=== PATIENT | female | born 1985 | race Caucasian/White ===

== ENCOUNTER 2019-04-28 12:13 | Emergency (ER) | payer SELFPAY ==
[~2019-04-28] VITALS: Ht 162.6 cm; Wt 72.7 kg
[2019-04-28 13:33] LABS: BASOPHILS % (AUTO) 0.2 % (0.0-2.0); EOSINOPHILS % (AUTO) 0.1 % (1.0-6.0); HEMATOCRIT 38.3 % (36-46); HEMOGLOBIN 12.5 g/dL (12.0-16.0); LYMPHOCYTES % (AUTO) 10.3 % (22.0-44.0); MEAN CORPUSCULAR HEMOGLOBIN 27.2 pg (26.0-34.0); MEAN CORPUSCULAR HGB CONC 32.5 G/dL (31.0-37.0); MEAN CORPUSCULAR VOLUME 84 fL (80-100); MONOCYTES # (AUTO) 0.6 K/uL (0.1-1.0); MONOCYTES % (AUTO) 6.7 % (2.0-9.0); NEUTROPHILS % (AUTO) 82.7 % (40.0-70.0); PLATELET COUNT (AUTO) 343 K/uL (150-450); RED BLOOD CELL COUNT(AUTO) 4.58 MIL/uL (4.00-5.20); RED CELL DISTRIBUTION WIDTH 14.9 % (11.5-14.5)
[2019-04-28 13:46] LABS: ANION GAP 9 mmol/L (8-16); CALCIUM, TOTAL 9.3 mg/dL (8.8-10.5); CARBON DIOXIDE 28 mmol/L (22-29); CHLORIDE 105 mmol/L (98-107); GLOMERULAR FILTR. RATE CALC > 60 mL/min (>60); GLUCOSE,RANDOM 89 mg/dL (70-110); POTASSIUM 3.5 mmol/L (3.5-5.1); SODIUM SERUM 142 mmol/L (136-145); UREA NITROGEN, BLOOD 15 mg/dL (7-18)
[2019-04-28 13:50] LABS: ALANINE AMINOTRANSFERASE 43 U/L (12-78); ALKALINE PHOSPHATASE 79 U/L (46-116); ASPARTATE AMINOTRANSFERASE 26 U/L (15-37); BILIRUBIN,TOTAL 0.4 mg/dL (0.1-1.0); TOTAL PROTEIN, SERUM 7.8 g/dL (6.4-8.2)
[2019-04-28 15:37] LABS: AMPHET/METH SCREEN,URINE POSITIVE (NEGATIVE); BARBITURATE SCREEN, URINE NEGATIVE (NEGATIVE); BENZODIAZEPINES SCREEN,URINE NEGATIVE (NEGATIVE); CANNABINOID SCREEN,URINE NEGATIVE (NEGATIVE); COCAINE SCREEN,URINE NEGATIVE (NEGATIVE); METHADONE SCREEN, URINE NEGATIVE (NEGATIVE); OPIATE SCREEN,URINE NEGATIVE (NEGATIVE); PHENCYCLIDINE SCREEN,URINE NEGATIVE (NEGATIVE)
[2019-04-28] MEDS ORDERED: LORazepam 1 MG TABLET PO ONE (15:45)
[2019-04-28 16:37] VITALS: BP 111/81
== END 2019-04-28 16:42 | disposition home or self-care (01) ==
LOC: EMS 12:17
DX: R45.851 Suicidal ideations (principal); F22 Delusional disorders; F20.9 Schizophrenia, unspecified; F15.10 Other stimulant abuse, uncomplicated; F17.210 Nicotine dependence, cigarettes, uncomplicated
CPT/HCPCS: 36415; 80053; 80307; 85025; 99285; 99406; G0480

== ENCOUNTER 2019-10-07 14:03 | Inpatient (IN) | payer MEDICAID ==
[~2019-10-07] VITALS: Ht 167.6 cm; Wt 62.8 kg
[2019-10-07 15:43] LABS: BASOPHILS % (AUTO) 0.6 % (0.0-2.0); EOSINOPHILS % (AUTO) 0.1 % (1.0-6.0); HEMATOCRIT 33.8 % (36-46); HEMOGLOBIN 11.7 g/dL (12.0-16.0); LYMPHOCYTES # (AUTO) 1.8 K/uL (1.0-4.8); LYMPHOCYTES % (AUTO) 15.4 % (22.0-44.0); MEAN CORPUSCULAR HEMOGLOBIN 29.6 pg (26.0-34.0); MEAN CORPUSCULAR HGB CONC 34.7 G/dL (31.0-37.0); MEAN CORPUSCULAR VOLUME 85 fL (80-100); MONOCYTES # (AUTO) 1.1 K/uL (0.1-1.0); MONOCYTES % (AUTO) 9.6 % (2.0-9.0); NEUTROPHILS # (AUTO) 8.7 K/uL (1.8-7.7); NEUTROPHILS % (AUTO) 74.3 % (40.0-70.0); PLATELET COUNT (AUTO) 377 K/uL (150-450); RED BLOOD CELL COUNT(AUTO) 3.96 MIL/uL (4.00-5.20); RED CELL DISTRIBUTION WIDTH 14.9 % (11.5-14.5)
[2019-10-07 15:51] LABS: ANION GAP 14 mmol/L (8-16); CARBON DIOXIDE 22 mmol/L (22-29); CHLORIDE 103 mmol/L (98-107); CREATININE 1.07 mg/dL (0.60-1.30); GLOMERULAR FILTR. RATE CALC 59 mL/min (>60); GLUCOSE,RANDOM 105 mg/dL (70-110); POTASSIUM 3.4 mmol/L (3.5-5.1); SODIUM SERUM 139 mmol/L (136-145); UREA NITROGEN, BLOOD 30 mg/dL (7-18)
[2019-10-07 16:03] LABS: ALANINE AMINOTRANSFERASE 114 U/L (12-78); ALBUMIN 4.8 g/dL (3.4-5.0); ALKALINE PHOSPHATASE 111 U/L (46-116); ASPARTATE AMINOTRANSFERASE 176 U/L (15-37); BILIRUBIN,TOTAL 1.3 mg/dL (0.1-1.0); HCG,QUANTITATIVE < 1 mIU/mL (0-6); TOTAL PROTEIN, SERUM 9.1 g/dL (6.4-8.2)
[2019-10-07] MEDS ORDERED: HALOPERIDOL 5 MG TABLET PO PRN (18:30)
[2019-10-07] MEDS ORDERED: ZOLPIDEM TARTRATE 10 MG TABLET PO PRN (18:30)
[2019-10-07] MEDS: LORazepam 2 MG TABLET PO PRN (19:45)
[2019-10-07 20:02] LABS: AMPHET/METH SCREEN,URINE POSITIVE (NEGATIVE); BARBITURATE SCREEN, URINE NEGATIVE (NEGATIVE); BENZODIAZEPINES SCREEN,URINE NEGATIVE (NEGATIVE); CANNABINOID SCREEN,URINE NEGATIVE (NEGATIVE); COCAINE SCREEN,URINE NEGATIVE (NEGATIVE); METHADONE SCREEN, URINE NEGATIVE (NEGATIVE); OPIATE SCREEN,URINE NEGATIVE (NEGATIVE)
[2019-10-07 20:03] LABS: PHENCYCLIDINE SCREEN,URINE NEGATIVE (NEGATIVE)
[2019-10-08 08:46] LABS: CHOL/HDL RATIO 2.6 (3.9-5.7); FREE T4 (FREE THYROXINE) 1.57 ng/dL (0.76-1.46); THYROID STIMULATING HORMONE 0.68 uIU/mL (0.36-3.74)
[2019-10-08 18:50] VITALS: BP 146/86
[2019-10-09 03:53] VITALS: BP 132/84
[2019-10-09] MEDS ORDERED: LOPERAMIDE HCL 2 MG CAPSULE PO PRN (07:15)
[2019-10-09] MEDS ORDERED: ONDANSETRON HCL 4 MG TABLET PO PRN (07:15)
[2019-10-09] MEDS ORDERED: MAG HYDROX/AL HYDROX/SIMETH ES 30 ML SUSPENSION UDCUP PO PRN (07:15)
[2019-10-09] MEDS ORDERED: IBUPROFEN 600 MG TABLET PO PRN (07:15)
[2019-10-09] MEDS ORDERED: DOCUSATE SODIUM 100 MG CAPSULE PO PRN (07:15)
[2019-10-09] MEDS ORDERED: PETROLATUM,WHITE 28 GM JELLY TP PRN (07:15)
[2019-10-09] MEDS ORDERED: CloNIDine HCL 0.1 MG TABLET PO PRN (07:15)
[2019-10-09] MEDS ORDERED: BACITRACIN 28 GM OINTMENT TP PRN (07:15)
[2019-10-09] MEDS ORDERED: BENZOCAINE/MENTHOL LOZENGE PO PRN (07:15)
[2019-10-09] MEDS ORDERED: ALBUTEROL SULFATE HFA 90 MCG/PUFF 8 GM INHALER IH PRN (07:15)
[2019-10-09] MEDS ORDERED: ACETAMINOPHEN 325 MG TABLET PO PRN (07:15)
[2019-10-09] MEDS ORDERED: MAGNESIUM HYDROXIDE SUSPENSION 30 ML UDCUP PO PRN (07:15)
[2019-10-09] MEDS ORDERED: OMEPRAZOLE 20 MG CAPSULE PO PRN (07:15)
[2019-10-09 08:10] VITALS: BP 137/85
[2019-10-09 16:11] VITALS: BP 124/75
[2019-10-09] MEDS: LORazepam 2 MG TABLET PO PRN (16:31)
[2019-10-09] MEDS: OLANZapine 7.5 MG TABLET PO SCH (20:42)
[2019-10-10 04:38] VITALS: BP 124/92
[2019-10-10 07:47] LABS: BASOPHILS % (AUTO) 0.5 % (0.0-2.0); EOSINOPHILS % (AUTO) 4.3 % (1.0-6.0); HEMATOCRIT 33.6 % (36-46); HEMOGLOBIN 10.9 g/dL (12.0-16.0); LYMPHOCYTES # (AUTO) 2.3 K/uL (1.0-4.8); LYMPHOCYTES % (AUTO) 36.2 % (22.0-44.0); MEAN CORPUSCULAR HEMOGLOBIN 28.3 pg (26.0-34.0); MEAN CORPUSCULAR HGB CONC 32.5 G/dL (31.0-37.0); MEAN CORPUSCULAR VOLUME 87 fL (80-100); MONOCYTES # (AUTO) 0.6 K/uL (0.1-1.0); MONOCYTES % (AUTO) 9.7 % (2.0-9.0); NEUTROPHILS # (AUTO) 3.2 K/uL (1.8-7.7); NEUTROPHILS % (AUTO) 49.3 % (40.0-70.0); PLATELET COUNT (AUTO) 313 K/uL (150-450); RED BLOOD CELL COUNT(AUTO) 3.86 MIL/uL (4.00-5.20)
[2019-10-10 08:03] LABS: ALANINE AMINOTRANSFERASE 47 U/L (12-78); ALKALINE PHOSPHATASE 76 U/L (46-116); ANION GAP 6 mmol/L (8-16); ASPARTATE AMINOTRANSFERASE 24 U/L (15-37); BILIRUBIN,TOTAL 0.2 mg/dL (0.1-1.0); CALCIUM, TOTAL 8.2 mg/dL (8.8-10.5); CARBON DIOXIDE 29 mmol/L (22-29); CHLORIDE 104 mmol/L (98-107); CREATININE 0.74 mg/dL (0.60-1.30); GLOMERULAR FILTR. RATE CALC > 60 mL/min (>60); GLUCOSE,RANDOM 105 mg/dL (70-110); POTASSIUM 3.4 mmol/L (3.5-5.1); SODIUM SERUM 139 mmol/L (136-145); TOTAL PROTEIN, SERUM 6.4 g/dL (6.4-8.2); UREA NITROGEN, BLOOD 15 mg/dL (7-18)
[2019-10-10 08:26] VITALS: BP 119/72
[2019-10-10] MEDS: LORazepam 2 MG TABLET PO PRN (10:41)
[2019-10-10 16:07] VITALS: BP 116/79
[2019-10-10] MEDS ORDERED: POTASSIUM CHLORIDE 20 MEQ ER TABLET PO ONE (18:45)
[2019-10-10] MEDS: OLANZapine 7.5 MG TABLET PO SCH (20:12)
[2019-10-11 03:41] VITALS: BP 115/65
[2019-10-11 08:17] VITALS: BP 110/69
[2019-10-11 16:33] VITALS: BP 105/67
[2019-10-11] MEDS: OLANZapine 7.5 MG TABLET PO SCH (20:36)
[2019-10-12 06:22] VITALS: BP 112/66
[2019-10-12 08:17] VITALS: BP 100/60
[2019-10-12 16:09] VITALS: BP 100/62
[2019-10-12] MEDS: OLANZapine 7.5 MG TABLET PO SCH (20:39)
[2019-10-13 00:27] VITALS: BP 101/74
[2019-10-13 09:52] VITALS: BP 116/64
[2019-10-13 16:00] VITALS: BP 122/77
[2019-10-13] MEDS: OLANZapine 7.5 MG TABLET PO SCH (20:26)
[2019-10-14 04:00] VITALS: BP 103/62
[2019-10-14 08:17] VITALS: BP 112/68
[2019-10-14 16:07] VITALS: BP 119/67
[2019-10-14] MEDS: OLANZapine 7.5 MG TABLET PO SCH (20:07)
[2019-10-15 06:24] VITALS: BP 113/72
[2019-10-15 08:26] VITALS: BP 116/74
[2019-10-15] MEDS: LORazepam 2 MG TABLET PO PRN (13:32)
[2019-10-15 16:09] VITALS: BP 104/61
[2019-10-15] MEDS: OLANZapine 7.5 MG TABLET PO SCH (20:23)
[2019-10-16 01:08] VITALS: BP 101/66
[2019-10-16 08:14] VITALS: BP 128/66
[2019-10-16] MEDS: LORazepam 2 MG TABLET PO PRN ×2 (14:25→18:38)
[2019-10-16 16:18] VITALS: BP 100/67
[2019-10-16] MEDS: OLANZapine 7.5 MG TABLET PO SCH (20:35)
[2019-10-17 04:37] VITALS: BP 101/69
[2019-10-17 08:20] VITALS: BP 110/66
[2019-10-17] MEDS ORDERED: OLAN7.5T2 PO (11:04)
[2019-10-18] MEDS ORDERED: MULTIVITAMINS WITH IRON TABLET PO SCH (07:30)
== END 2019-10-17 13:10 | disposition home or self-care (01) | DRG 750 ==
LOC: EMS 14:06 → B3A 10-08 16:56
PROVIDERS: ADMIT Psychiatry & Neurology Psychiatry; ATTEND Psychiatry & Neurology Psychiatry
DX: F20.0 Paranoid schizophrenia (principal); F41.9 Anxiety disorder, unspecified; G47.00 Insomnia, unspecified; E87.6 Hypokalemia; F15.10 Other stimulant abuse, uncomplicated; E44.1 Mild protein-calorie malnutrition; F17.210 Nicotine dependence, cigarettes, uncomplicated; K59.00 Constipation, unspecified; Z56.0 Unemployment, unspecified; Z59.0 Homelessness; Z68.22 Body mass index [BMI] 22.0-22.9, adult; Z03.818 Encounter for observation for suspected exposure to other biological agents ruled out
CPT/HCPCS: 80074; 84132; 84439; 84443; G0480

== ENCOUNTER 2019-11-09 22:27 | Inpatient (IN) | payer MEDICAID ==
[~2019-11-09] VITALS: Ht 167.6 cm; Wt 63.7 kg
[~2019-11-09 22:27] MED LIST: OLAN7.5T2 PO
[2019-11-09 23:45] LABS: BASOPHILS % (AUTO) 0.4 % (0.0-2.0); EOSINOPHILS % (AUTO) 0.9 % (1.0-6.0); HEMATOCRIT 38.5 % (36-46); HEMOGLOBIN 12.5 g/dL (12.0-16.0); LYMPHOCYTES % (AUTO) 17.9 % (22.0-44.0); MEAN CORPUSCULAR HEMOGLOBIN 28.1 pg (26.0-34.0); MEAN CORPUSCULAR HGB CONC 32.5 G/dL (31.0-37.0); MEAN CORPUSCULAR VOLUME 86 fL (80-100); MONOCYTES % (AUTO) 9.5 % (2.0-9.0); NEUTROPHILS # (AUTO) 7.8 K/uL (1.8-7.7); NEUTROPHILS % (AUTO) 71.3 % (40.0-70.0); PLATELET COUNT (AUTO) 379 K/uL (150-450); RED BLOOD CELL COUNT(AUTO) 4.46 MIL/uL (4.00-5.20); RED CELL DISTRIBUTION WIDTH 14.2 % (11.5-14.5)
[2019-11-10] LABS: ANION GAP 12 mmol/L (8-16); CALCIUM, TOTAL 8.7 mg/dL (8.8-10.5); CARBON DIOXIDE 27 mmol/L (22-29); CHLORIDE 102 mmol/L (98-107); CREATININE 0.88 mg/dL (0.60-1.30); GLOMERULAR FILTR. RATE CALC > 60 mL/min (>60); GLUCOSE,RANDOM 112 mg/dL (70-110); POTASSIUM 3.3 mmol/L (3.5-5.1); SODIUM SERUM 141 mmol/L (136-145); UREA NITROGEN, BLOOD 16 mg/dL (7-18)
[2019-11-10 00:11] LABS: ALANINE AMINOTRANSFERASE 29 U/L (12-78); ALBUMIN 3.9 g/dL (3.4-5.0); ALKALINE PHOSPHATASE 102 U/L (46-116); ASPARTATE AMINOTRANSFERASE 29 U/L (15-37); BILIRUBIN,TOTAL 0.4 mg/dL (0.1-1.0); HCG,QUANTITATIVE 1 mIU/mL (0-6); TOTAL PROTEIN, SERUM 7.9 g/dL (6.4-8.2)
[2019-11-10 01:20] LABS: COVID AG,FIA SOURCE NASOPHARYNGEAL
[2019-11-10] MEDS ORDERED: PERTUSS(ACELL),DIPH,TET VAC/PF 0.5 ML VIAL IM ONE (01:30)
[2019-11-10] MEDS ORDERED: LORazepam 2 MG TABLET PO PRN (01:45)
[2019-11-10] MEDS ORDERED: ZOLPIDEM TARTRATE 10 MG TABLET PO PRN (01:45)
[2019-11-10] MEDS ORDERED: HALOPERIDOL 5 MG TABLET PO PRN (01:45)
[2019-11-10] MEDS ORDERED: HALOPERIDOL LACTATE 5 MG/ML VIAL IM ONE (05:45)
[2019-11-10] MEDS ORDERED: LORazepam 2 MG/ML VIAL IM ONE (05:45)
[2019-11-10] MEDS ORDERED: DiphenhydrAMINE HCL 50 MG/ML VIAL IM ONE (05:45)
[2019-11-10] MEDS ORDERED: POTASSIUM CHLORIDE 20 MEQ ER TABLET PO ONE (08:30)
[2019-11-10 14:47] VITALS: BP 118/64
[2019-11-10 16:07] VITALS: BP 106/64
[2019-11-10] MEDS: OLANZapine 7.5 MG TABLET PO SCH (20:40)
[2019-11-11] MEDS ORDERED: CloNIDine HCL 0.1 MG TABLET PO PRN (08:15)
[2019-11-11] MEDS ORDERED: MAG HYDROX/AL HYDROX/SIMETH ES 30 ML SUSPENSION UDCUP PO PRN (08:15)
[2019-11-11] MEDS ORDERED: BENZOCAINE/MENTHOL LOZENGE PO PRN (08:15)
[2019-11-11] MEDS ORDERED: MAGNESIUM HYDROXIDE SUSPENSION 30 ML UDCUP PO PRN (08:15)
[2019-11-11] MEDS ORDERED: ALBUTEROL SULFATE HFA 90 MCG/PUFF 8 GM INHALER IH PRN (08:15)
[2019-11-11] MEDS ORDERED: DOCUSATE SODIUM 100 MG CAPSULE PO PRN (08:15)
[2019-11-11] MEDS ORDERED: PETROLATUM,WHITE 28 GM JELLY TP PRN (08:15)
[2019-11-11] MEDS ORDERED: ACETAMINOPHEN 325 MG TABLET PO PRN (08:15)
[2019-11-11] MEDS ORDERED: BACITRACIN 28 GM OINTMENT TP PRN (08:15)
[2019-11-11] MEDS ORDERED: LOPERAMIDE HCL 2 MG CAPSULE PO PRN (08:15)
[2019-11-11] MEDS ORDERED: ONDANSETRON HCL 4 MG TABLET PO PRN (08:15)
[2019-11-11] MEDS ORDERED: IBUPROFEN 600 MG TABLET PO PRN (08:15)
[2019-11-11] MEDS ORDERED: OMEPRAZOLE 20 MG CAPSULE PO PRN (08:15)
[2019-11-11 17:27] VITALS: BP 122/71
[2019-11-11] MEDS: OLANZapine 7.5 MG TABLET PO SCH (20:17)
[2019-11-12 01:49] VITALS: BP 125/68
[2019-11-12 08:03] VITALS: BP 156/96
[2019-11-12] MEDS: OLANZapine 7.5 MG TABLET PO SCH (20:06)
[2019-11-13 06:15] VITALS: BP 140/98
[2019-11-13 13:25] VITALS: BP 124/84
[2019-11-13 16:15] VITALS: BP 131/78
[2019-11-13] MEDS: OLANZapine 7.5 MG TABLET PO SCH (20:15)
[2019-11-14 03:49] VITALS: BP 126/75
[2019-11-14 16:17] VITALS: BP 115/72
[2019-11-14] MEDS: OLANZapine 7.5 MG TABLET PO SCH (19:50)
[2019-11-15 02:42] VITALS: BP 111/68
[2019-11-15 08:03] VITALS: BP 115/68
[2019-11-15 16:02] VITALS: BP 131/81
[2019-11-15] MEDS: OLANZapine 7.5 MG TABLET PO SCH (20:46)
[2019-11-16 18:00] VITALS: BP 134/98
[2019-11-16] MEDS: OLANZapine 7.5 MG TABLET PO SCH (20:33)
[2019-11-17 02:20] VITALS: BP 128/86
[2019-11-17 08:13] VITALS: BP 126/74
[2019-11-17] MEDS ORDERED: MULTIVITAMINS WITH MINERALS, THERAPEUTIC TABLET PO SCH (09:00)
== END 2019-11-17 14:30 | disposition home or self-care (01) | DRG 750 ==
LOC: EMS 22:27 → B2S 11-10 01:42 → B3A 11-10 05:52
PROVIDERS: ADMIT Psychiatry & Neurology Psychiatry; ATTEND Psychiatry & Neurology Psychiatry
DX: F20.0 Paranoid schizophrenia (principal); Z20.828 Contact with and (suspected) exposure to other viral communicable diseases; E87.6 Hypokalemia; F41.9 Anxiety disorder, unspecified; F19.10 Other psychoactive substance abuse, uncomplicated; K59.00 Constipation, unspecified; G47.00 Insomnia, unspecified; E44.1 Mild protein-calorie malnutrition; F17.200 Nicotine dependence, unspecified, uncomplicated; Z71.6 Tobacco abuse counseling; Z59.0 Homelessness; Z68.22 Body mass index [BMI] 22.0-22.9, adult; Z03.818 Encounter for observation for suspected exposure to other biological agents ruled out
CPT/HCPCS: 87081; 87426; G0480; J1200; J1630; J2060

== ENCOUNTER 2019-11-19 16:51 | Inpatient (IN) | payer MEDICAID ==
[~2019-11-19] VITALS: Ht 170.2 cm; Wt 62.9 kg
[2019-11-19] MEDS ORDERED: DiphenhydrAMINE HCL 50 MG/ML VIAL ONE (17:34)
[2019-11-19] MEDS ORDERED: LORazepam 2 MG/ML VIAL ONE (17:34)
[2019-11-19] MEDS ORDERED: HALOPERIDOL LACTATE 5 MG/ML VIAL ONE (17:34)
[2019-11-19] MEDS ORDERED: HALOPERIDOL LACTATE 5 MG/ML VIAL IM ONE (17:45)
[2019-11-19] MEDS ORDERED: DiphenhydrAMINE HCL 50 MG/ML VIAL IM ONE (17:45)
[2019-11-19] MEDS ORDERED: LORazepam 2 MG/ML VIAL IM ONE (17:45)
[2019-11-19] MEDS ORDERED: ZOLPIDEM TARTRATE 10 MG TABLET PO PRN (18:15)
[2019-11-19] MEDS ORDERED: HALOPERIDOL 5 MG TABLET PO PRN (18:15)
[2019-11-19] MEDS ORDERED: LORazepam 2 MG TABLET PO PRN (18:15)
[2019-11-19 18:50] LABS: BASOPHILS % (AUTO) 0.9 % (0.0-2.0); EOSINOPHILS % (AUTO) 0.7 % (1.0-6.0); HEMATOCRIT 38.2 % (36-46); HEMOGLOBIN 12.7 g/dL (12.0-16.0); LYMPHOCYTES # (AUTO) 1.6 K/uL (1.0-4.8); MEAN CORPUSCULAR HEMOGLOBIN 28.7 pg (26.0-34.0); MEAN CORPUSCULAR HGB CONC 33.2 G/dL (31.0-37.0); MEAN CORPUSCULAR VOLUME 87 fL (80-100); MONOCYTES # (AUTO) 0.8 K/uL (0.1-1.0); MONOCYTES % (AUTO) 7.4 % (2.0-9.0); NEUTROPHILS # (AUTO) 7.6 K/uL (1.8-7.7); PLATELET COUNT (AUTO) 447 K/uL (150-450); RED BLOOD CELL COUNT(AUTO) 4.42 MIL/uL (4.00-5.20); RED CELL DISTRIBUTION WIDTH 14.1 % (11.5-14.5)
[2019-11-19 19:01] LABS: ANION GAP 8 mmol/L (8-16); CALCIUM, TOTAL 8.8 mg/dL (8.8-10.5); CARBON DIOXIDE 29 mmol/L (22-29); CHLORIDE 103 mmol/L (98-107); CREATININE 0.85 mg/dL (0.60-1.30); GLOMERULAR FILTR. RATE CALC > 60 mL/min (>60); GLUCOSE,RANDOM 83 mg/dL (70-110); POTASSIUM 3.1 mmol/L (3.5-5.1); SODIUM SERUM 140 mmol/L (136-145); UREA NITROGEN, BLOOD 20 mg/dL (7-18)
[2019-11-19 19:16] LABS: ALANINE AMINOTRANSFERASE 42 U/L (12-78); ALBUMIN 3.9 g/dL (3.4-5.0); ALKALINE PHOSPHATASE 87 U/L (46-116); ASPARTATE AMINOTRANSFERASE 30 U/L (15-37); BILIRUBIN,TOTAL 0.5 mg/dL (0.1-1.0); HCG,QUANTITATIVE 1 mIU/mL (0-6); TOTAL PROTEIN, SERUM 7.6 g/dL (6.4-8.2)
[2019-11-19 20:34] LABS: COVID AG,FIA SOURCE NASOPHARYNGEAL
[2019-11-19] MEDS ORDERED: POTASSIUM CHLORIDE 10% 40 MEQ/30 ML LIQUID UDCUP PO ONE (21:30)
[2019-11-20 01:14] VITALS: BP 131/86
[2019-11-20] MEDS ORDERED: INFLUENZA VIRUS VACCINE QVS 2020-21 (6MO+)/PF 60 MCG/0.5 ML SYRINGE IM ONE (01:30)
[2019-11-20] MEDS ORDERED: ALBUTEROL SULFATE HFA 90 MCG/PUFF 8 GM INHALER IH PRN (07:45)
[2019-11-20] MEDS ORDERED: LOPERAMIDE HCL 2 MG CAPSULE PO PRN (07:45)
[2019-11-20] MEDS ORDERED: MAGNESIUM HYDROXIDE SUSPENSION 30 ML UDCUP PO PRN (07:45)
[2019-11-20] MEDS ORDERED: CloNIDine HCL 0.1 MG TABLET PO PRN (07:45)
[2019-11-20] MEDS ORDERED: IBUPROFEN 600 MG TABLET PO PRN (07:45)
[2019-11-20] MEDS ORDERED: DOCUSATE SODIUM 100 MG CAPSULE PO PRN (07:45)
[2019-11-20] MEDS ORDERED: MAG HYDROX/AL HYDROX/SIMETH ES 30 ML SUSPENSION UDCUP PO PRN (07:45)
[2019-11-20] MEDS ORDERED: OMEPRAZOLE 20 MG CAPSULE PO PRN (07:45)
[2019-11-20] MEDS ORDERED: PETROLATUM,WHITE 28 GM JELLY TP PRN (07:45)
[2019-11-20] MEDS ORDERED: BACITRACIN 28 GM OINTMENT TP PRN (07:45)
[2019-11-20] MEDS ORDERED: BENZOCAINE/MENTHOL LOZENGE PO PRN (07:45)
[2019-11-20] MEDS ORDERED: ACETAMINOPHEN 325 MG TABLET PO PRN (07:45)
[2019-11-20] MEDS ORDERED: ONDANSETRON HCL 4 MG TABLET PO PRN (07:45)
[2019-11-20 08:35] LABS: AMPHET/METH SCREEN,URINE POSITIVE (NEGATIVE); BARBITURATE SCREEN, URINE NEGATIVE (NEGATIVE); BENZODIAZEPINES SCREEN,URINE NEGATIVE (NEGATIVE); CANNABINOID SCREEN,URINE NEGATIVE (NEGATIVE); COCAINE SCREEN,URINE NEGATIVE (NEGATIVE); METHADONE SCREEN, URINE NEGATIVE (NEGATIVE); OPIATE SCREEN,URINE NEGATIVE (NEGATIVE)
[2019-11-20 08:40] LABS: PHENCYCLIDINE SCREEN,URINE NEGATIVE (NEGATIVE)
[2019-11-20 08:42] LABS: APPEARANCE,URINE CLOUDY (CLEAR); BILIRUBIN,URINE NEGATIVE (NEGATIVE); GLUCOSE, URINE (UA) NEGATIVE (NEGATIVE); KETONES,URINE NEGATIVE (NEGATIVE); LEUKOCYTE ESTERASE ,URINE NEGATIVE (NEGATIVE); NITRATE,URINE NEGATIVE (NEGATIVE); OCCULT BLOOD,URINE NEGATIVE (NEGATIVE); PROTEIN,URINE NEGATIVE (NEGATIVE); UROBILINOGEN,URINE 0.2 mg/dL (<=1.0)
[2019-11-20 08:58] VITALS: BP 120/71
[2019-11-20 16:21] VITALS: BP 111/68
[2019-11-20] MEDS: OLANZapine 7.5 MG TABLET PO SCH (20:13)
[2019-11-21 16:30] VITALS: BP 121/77
[2019-11-21] MEDS: OLANZapine 7.5 MG TABLET PO SCH (20:39)
[2019-11-22 06:49] LABS: POTASSIUM 4.1 mmol/L (3.5-5.1)
[2019-11-22 16:27] VITALS: BP 117/67
[2019-11-22] MEDS: OLANZapine 7.5 MG TABLET PO SCH (20:19)
[2019-11-23 09:09] VITALS: BP 122/75
[2019-11-23 16:39] VITALS: BP 125/62
[2019-11-23] MEDS ORDERED: OLAN7.5T2 PO ×4 (19:29→19:35)
== END 2019-11-23 20:00 | disposition home or self-care (01) | DRG 750 ==
LOC: EMS 16:52 → UNDOADMIN 18:09 → 3EI 18:09
PROVIDERS: ADMIT Psychiatry & Neurology Psychiatry; ATTEND Psychiatry & Neurology Psychiatry
DX: F20.0 Paranoid schizophrenia (principal); E87.6 Hypokalemia; F15.10 Other stimulant abuse, uncomplicated; F41.9 Anxiety disorder, unspecified; G47.00 Insomnia, unspecified; K59.00 Constipation, unspecified; R45.87 Impulsiveness; Z20.828 Contact with and (suspected) exposure to other viral communicable diseases; Z59.0 Homelessness; Z72.0 Tobacco use
CPT/HCPCS: 84132; 84295; 87081; 87426; 99291; G0480; J1200; J1630; J2060

== ENCOUNTER 2019-11-29 08:09 | Inpatient (IN) | payer MEDICAID ==
[~2019-11-29] VITALS: Ht 167.6 cm; Wt 68.5 kg
[2019-11-29 09:54] LABS: COVID AG,FIA SOURCE NASOPHARYNGEAL
[2019-11-29 10:40] LABS: BASOPHILS % (AUTO) 0.6 % (0.0-2.0); EOSINOPHILS % (AUTO) 1.8 % (1.0-6.0); HEMOGLOBIN 10.7 g/dL (12.0-16.0); LYMPHOCYTES # (AUTO) 1.4 K/uL (1.0-4.8); LYMPHOCYTES % (AUTO) 23.9 % (22.0-44.0); MEAN CORPUSCULAR HEMOGLOBIN 28.6 pg (26.0-34.0); MEAN CORPUSCULAR HGB CONC 33.3 G/dL (31.0-37.0); MEAN CORPUSCULAR VOLUME 86 fL (80-100); MONOCYTES # (AUTO) 0.6 K/uL (0.1-1.0); MONOCYTES % (AUTO) 9.6 % (2.0-9.0); NEUTROPHILS # (AUTO) 3.9 K/uL (1.8-7.7); NEUTROPHILS % (AUTO) 64.1 % (40.0-70.0); PLATELET COUNT (AUTO) 302 K/uL (150-450); RED BLOOD CELL COUNT(AUTO) 3.73 MIL/uL (4.00-5.20); RED CELL DISTRIBUTION WIDTH 13.8 % (11.5-14.5)
[2019-11-29 10:50] LABS: ANION GAP 10 mmol/L (8-16); CALCIUM, TOTAL 8.4 mg/dL (8.8-10.5); CARBON DIOXIDE 25 mmol/L (22-29); CHLORIDE 104 mmol/L (98-107); GLOMERULAR FILTR. RATE CALC > 60 mL/min (>60); GLUCOSE,RANDOM 76 mg/dL (70-110); POTASSIUM 3.2 mmol/L (3.5-5.1); SODIUM SERUM 139 mmol/L (136-145); UREA NITROGEN, BLOOD 10 mg/dL (7-18)
[2019-11-29 11:05] LABS: ALANINE AMINOTRANSFERASE 28 U/L (12-78); ALBUMIN 3.3 g/dL (3.4-5.0); ALKALINE PHOSPHATASE 67 U/L (46-116); ASPARTATE AMINOTRANSFERASE 24 U/L (15-37); BILIRUBIN,TOTAL 0.4 mg/dL (0.1-1.0); HCG,QUANTITATIVE 1 mIU/mL (0-6); TOTAL PROTEIN, SERUM 6.4 g/dL (6.4-8.2)
[2019-11-29] MEDS ORDERED: POTASSIUM CHLORIDE 20 MEQ ER TABLET PO ONE (11:15)
[2019-11-29] MEDS ORDERED: OLANZapine 5 MG TABLET PO ONE (11:30)
[2019-11-29] MEDS ORDERED: LORazepam 2 MG TABLET PO ONE (11:30)
[2019-11-29 11:55] LABS: AMPHET/METH SCREEN,URINE POSITIVE (NEGATIVE); BARBITURATE SCREEN, URINE NEGATIVE (NEGATIVE); BENZODIAZEPINES SCREEN,URINE NEGATIVE (NEGATIVE); CANNABINOID SCREEN,URINE NEGATIVE (NEGATIVE); COCAINE SCREEN,URINE NEGATIVE (NEGATIVE); METHADONE SCREEN, URINE NEGATIVE (NEGATIVE); OPIATE SCREEN,URINE NEGATIVE (NEGATIVE)
[2019-11-29 12:00] LABS: PHENCYCLIDINE SCREEN,URINE NEGATIVE (NEGATIVE)
[2019-11-29] MEDS ORDERED: ZOLPIDEM TARTRATE 10 MG TABLET PO PRN (12:00)
[2019-11-29] MEDS ORDERED: INFLUENZA VIRUS VACCINE QVS 2020-21 (6MO+)/PF 60 MCG/0.5 ML SYRINGE IM ONE (14:30)
[2019-11-29 18:51] VITALS: BP 138/81
[2019-11-29] MEDS: OLANZapine 7.5 MG TABLET PO SCH (20:26)
[2019-11-30] MEDS ORDERED: CloNIDine HCL 0.1 MG TABLET PO PRN
[2019-11-30] MEDS ORDERED: MAGNESIUM HYDROXIDE SUSPENSION 30 ML UDCUP PO PRN
[2019-11-30] MEDS ORDERED: BENZOCAINE/MENTHOL LOZENGE PO PRN
[2019-11-30] MEDS ORDERED: PETROLATUM,WHITE 28 GM JELLY TP PRN
[2019-11-30] MEDS ORDERED: ALBUTEROL SULFATE HFA 90 MCG/PUFF 8 GM INHALER IH PRN
[2019-11-30] MEDS ORDERED: LOPERAMIDE HCL 2 MG CAPSULE PO PRN
[2019-11-30] MEDS ORDERED: OMEPRAZOLE 20 MG CAPSULE PO PRN
[2019-11-30] MEDS ORDERED: ONDANSETRON HCL 4 MG TABLET PO PRN
[2019-11-30] MEDS ORDERED: ACETAMINOPHEN 325 MG TABLET PO PRN
[2019-11-30] MEDS ORDERED: BACITRACIN 28 GM OINTMENT TP PRN
[2019-11-30] MEDS ORDERED: DOCUSATE SODIUM 100 MG CAPSULE PO PRN
[2019-11-30] MEDS ORDERED: MAG HYDROX/AL HYDROX/SIMETH ES 30 ML SUSPENSION UDCUP PO PRN
[2019-11-30 01:13] VITALS: BP 142/97
[2019-11-30 08:10] VITALS: BP 125/79
[2019-11-30] MEDS ORDERED: LORazepam 2 MG/ML VIAL ONE (12:32)
[2019-11-30] MEDS ORDERED: DiphenhydrAMINE HCL 50 MG/ML VIAL IM ONE (12:45)
[2019-11-30] MEDS ORDERED: HALOPERIDOL LACTATE 5 MG/ML VIAL IM ONE (12:45)
[2019-11-30] MEDS ORDERED: LORazepam 2 MG/ML VIAL IM ONE (12:45)
[2019-11-30] MEDS: LORazepam 2 MG TABLET PO PRN (17:28)
[2019-11-30] MEDS: OLANZapine 7.5 MG TABLET PO SCH (20:16)
[2019-11-30 20:29] VITALS: BP 119/68
[2019-12-01 02:02] VITALS: BP 114/74
[2019-12-01 08:33] VITALS: BP 120/84
[2019-12-01] MEDS: OLANZapine 7.5 MG TABLET PO SCH (20:36)
[2019-12-02 01:13] VITALS: BP 124/73
[2019-12-02 08:41] VITALS: BP 116/72
[2019-12-02 16:23] VITALS: BP 141/76
[2019-12-02] MEDS: LORazepam 2 MG TABLET PO PRN (16:50)
[2019-12-02] MEDS: OLANZapine 7.5 MG TABLET PO SCH (21:09)
[2019-12-03 01:30] VITALS: BP 128/77
[2019-12-03 08:21] VITALS: BP 133/80
[2019-12-03 16:09] VITALS: BP 128/76
[2019-12-03] MEDS: LORazepam 2 MG TABLET PO PRN (17:00)
[2019-12-03] MEDS: IBUPROFEN 600 MG TABLET PO PRN (17:01)
[2019-12-03] MEDS: OLANZapine 7.5 MG TABLET PO SCH (20:14)
[2019-12-04 01:22] VITALS: BP 114/72
[2019-12-04 08:33] VITALS: BP 129/69
[2019-12-04 16:27] VITALS: BP 120/72
[2019-12-04] MEDS: OLANZapine 7.5 MG TABLET PO SCH (20:43)
[2019-12-05 01:24] VITALS: BP 102/74
[2019-12-05 08:27] VITALS: BP 100/63
[2019-12-05] MEDS: LORazepam 2 MG TABLET PO PRN (16:00)
[2019-12-05 17:05] VITALS: BP 122/74
[2019-12-05] MEDS: IBUPROFEN 600 MG TABLET PO PRN (18:31)
[2019-12-05] MEDS: OLANZapine 7.5 MG TABLET PO SCH (20:55)
[2019-12-06 00:52] VITALS: BP 120/76
[2019-12-06 08:26] VITALS: BP 119/72
[2019-12-06 16:07] VITALS: BP 124/81
[2019-12-06] MEDS: LORazepam 2 MG TABLET PO PRN (16:09)
[2019-12-06] MEDS: IBUPROFEN 600 MG TABLET PO PRN (16:09)
[2019-12-06] MEDS: OLANZapine 7.5 MG TABLET PO SCH (20:43)
[2019-12-07 01:20] VITALS: BP 120/78
[2019-12-07 08:29] VITALS: BP 125/76
[2019-12-07 16:09] VITALS: BP 139/72
[2019-12-07] MEDS: OLANZapine 7.5 MG TABLET PO SCH (20:40)
[2019-12-08 00:12] VITALS: BP 128/72
[2019-12-08 08:33] VITALS: BP 108/87
[2019-12-08] MEDS: MULTIVITAMINS WITH MINERALS, THERAPEUTIC TABLET PO SCH (09:11)
[2019-12-08 16:11] VITALS: BP 128/67
[2019-12-08] MEDS: OLANZapine 7.5 MG TABLET PO SCH (20:25)
[2019-12-09 01:15] VITALS: BP 106/78
[2019-12-09] MEDS: MULTIVITAMINS WITH MINERALS, THERAPEUTIC TABLET PO SCH (08:05)
[2019-12-09 08:06] VITALS: BP 130/66
[2019-12-09 16:09] VITALS: BP 108/86
[2019-12-09] MEDS: LORazepam 2 MG TABLET PO PRN (16:16)
[2019-12-09] MEDS: OLANZapine 7.5 MG TABLET PO SCH (20:15)
[2019-12-10 05:40] VITALS: BP 112/72
[2019-12-10] MEDS: MULTIVITAMINS WITH MINERALS, THERAPEUTIC TABLET PO SCH (08:14)
[2019-12-10 08:24] VITALS: BP 104/63
[2019-12-10] MEDS: LORazepam 2 MG TABLET PO PRN ×2 (09:52→14:52)
[2019-12-10 16:14] VITALS: BP 105/65
[2019-12-10] MEDS: OLANZapine 7.5 MG TABLET PO SCH (20:07)
[2019-12-11 01:21] VITALS: BP 100/69
[2019-12-11 08:14] VITALS: BP 110/63
[2019-12-11] MEDS: MULTIVITAMINS WITH MINERALS, THERAPEUTIC TABLET PO SCH (08:24)
[2019-12-11] MEDS: LORazepam 2 MG TABLET PO PRN ×2 (08:24→14:51)
[2019-12-11 16:14] VITALS: BP 95/60
[2019-12-11] MEDS: OLANZapine 7.5 MG TABLET PO SCH (21:00)
[2019-12-12 00:42] VITALS: BP 102/69
[2019-12-12] MEDS: LORazepam 2 MG TABLET PO PRN ×2 (08:15→15:27)
[2019-12-12] MEDS: MULTIVITAMINS WITH MINERALS, THERAPEUTIC TABLET PO SCH (08:15)
[2019-12-12] MEDS: HALOPERIDOL 5 MG TABLET PO PRN (08:15)
[2019-12-12 08:38] VITALS: BP 107/72
[2019-12-12 16:05] VITALS: BP 114/67
[2019-12-12] MEDS: OLANZapine 7.5 MG TABLET PO SCH (20:11)
[2019-12-13 01:05] VITALS: BP 110/68
[2019-12-13 08:05] VITALS: BP 108/66
[2019-12-13] MEDS: MULTIVITAMINS WITH MINERALS, THERAPEUTIC TABLET PO SCH (08:22)
[2019-12-13] MEDS: LORazepam 2 MG TABLET PO PRN (09:50)
[2019-12-13] MEDS: HALOPERIDOL 5 MG TABLET PO PRN (09:50)
== END 2019-12-13 13:15 | disposition home or self-care (01) | DRG 750 ==
LOC: EMS 08:09 → B2S 12:40 → B3A 11-30 12:40
PROVIDERS: ADMIT Psychiatry & Neurology Psychiatry; ATTEND Psychiatry & Neurology Psychiatry
DX: F25.9 Schizoaffective disorder, unspecified (principal); Z20.828 Contact with and (suspected) exposure to other viral communicable diseases; D64.9 Anemia, unspecified; F15.10 Other stimulant abuse, uncomplicated; K59.00 Constipation, unspecified; F41.9 Anxiety disorder, unspecified; G47.00 Insomnia, unspecified; M25.571 Pain in right ankle and joints of right foot; Z59.0 Homelessness; Z28.20 Immunization not carried out because of patient decision for unspecified reason; Z79.899 Other long term (current) drug therapy
CPT/HCPCS: 87081; 87426; G0480; J1200; J1630; J2060

== ENCOUNTER 2019-12-22 17:27 | Emergency (ER) | payer MEDICAID ==
[~2019-12-22] VITALS: Ht 167.6 cm; Wt 67.1 kg
[2019-12-22] MEDS ORDERED: DiphenhydrAMINE HCL 25 MG/10 ML ELIXIR UDCUP PO ONE (19:00)
[2019-12-22] MEDS ORDERED: HALOPERIDOL 5 MG TABLET PO ONE (19:00)
[2019-12-22] MEDS ORDERED: LORazepam 1 MG TABLET PO ONE (19:00)
[2019-12-22 19:44] LABS: BASOPHILS % (AUTO) 0.6 % (0.0-2.0); EOSINOPHILS % (AUTO) 0.5 % (1.0-6.0); HEMATOCRIT 36.6 % (36-46); HEMOGLOBIN 12.1 g/dL (12.0-16.0); LYMPHOCYTES # (AUTO) 1.9 K/uL (1.0-4.8); LYMPHOCYTES % (AUTO) 15.1 % (22.0-44.0); MEAN CORPUSCULAR HEMOGLOBIN 28.4 pg (26.0-34.0); MEAN CORPUSCULAR HGB CONC 33.1 G/dL (31.0-37.0); MEAN CORPUSCULAR VOLUME 86 fL (80-100); MONOCYTES % (AUTO) 7.7 % (2.0-9.0); NEUTROPHILS # (AUTO) 9.5 K/uL (1.8-7.7); NEUTROPHILS % (AUTO) 76.1 % (40.0-70.0); PLATELET COUNT (AUTO) 354 K/uL (150-450); RED BLOOD CELL COUNT(AUTO) 4.27 MIL/uL (4.00-5.20); RED CELL DISTRIBUTION WIDTH 14.9 % (11.5-14.5)
[2019-12-22 20:01] LABS: CHLORIDE 104 mmol/L (98-107); POTASSIUM 3.3 mmol/L (3.5-5.1); UREA NITROGEN, BLOOD 16 mg/dL (7-18)
[2019-12-22 20:06] LABS: ASPARTATE AMINOTRANSFERASE 20 U/L (15-37)
[2019-12-22 20:13] LABS: ANION GAP 10 mmol/L (8-16); CALCIUM, TOTAL 8.7 mg/dL (8.8-10.5); CARBON DIOXIDE 24 mmol/L (22-29); CREATININE 0.93 mg/dL (0.60-1.30); GLOMERULAR FILTR. RATE CALC > 60 mL/min (>60); GLUCOSE,RANDOM 79 mg/dL (70-110); SODIUM SERUM 138 mmol/L (136-145)
[2019-12-22 20:29] LABS: ALANINE AMINOTRANSFERASE 24 U/L (12-78); ALKALINE PHOSPHATASE 84 U/L (46-116); BILIRUBIN,TOTAL 0.5 mg/dL (0.1-1.0); HCG,QUANTITATIVE 1 mIU/mL (0-6)
[2019-12-22] MEDS ORDERED: POTASSIUM CHLORIDE 10% 40 MEQ/30 ML LIQUID UDCUP PO ONE (21:00)
[2019-12-22 21:28] VITALS: BP 149/95
== END 2019-12-22 21:28 | disposition home or self-care (01) ==
LOC: EMS 17:29
DX: F20.0 Paranoid schizophrenia (principal); F12.90 Cannabis use, unspecified, uncomplicated; F15.10 Other stimulant abuse, uncomplicated; E87.6 Hypokalemia; Z79.899 Other long term (current) drug therapy
CPT/HCPCS: 36415; 80053; 84702; 85025; 99284; G0480

== ENCOUNTER 2023-07-14 13:20 | Inpatient (IN) | payer MEDICAID, OTHER ==
[~2023-07-14] VITALS: Ht 167.6 cm; Wt 67.7 kg
[~2023-07-14 13:20] MED LIST changes: +CIPR500T10 PO; +FLUO-418 PO; +MELA5TAB40 PO; +NALT50TA33 PO; +OLAN10TA26 PO; -OLAN7.5T2 PO
[2023-07-14] MEDS: OLANZapine 5 MG RAPDIS TABLET PO ONE (14:23)
[2023-07-14] MEDS: DiphenhydrAMINE HCL 50 MG/ML VIAL IM ONE (14:37)
[2023-07-14] MEDS: LORazepam 2 MG/ML VIAL IM ONE (14:38)
[2023-07-14 15:24] LABS: COVID AG,FIA SOURCE NASAL SWAB
[2023-07-14 15:30] LABS: BASOPHILS % (AUTO) 0.6 % (0.0-2.0); EOSINOPHILS % (AUTO) 3.8 % (1.0-6.0); HEMATOCRIT 32.2 % (36-46); HEMOGLOBIN 10.4 g/dL (12.0-16.0); LYMPHOCYTES # (AUTO) 2.4 K/uL (1.0-4.8); LYMPHOCYTES % (AUTO) 29.3 % (22.0-44.0); MEAN CORPUSCULAR HEMOGLOBIN 26.8 pg (26.0-34.0); MEAN CORPUSCULAR HGB CONC 32.4 G/dL (31.0-37.0); MEAN CORPUSCULAR VOLUME 83 fL (80-100); MONOCYTES # (AUTO) 0.8 K/uL (0.1-1.0); MONOCYTES % (AUTO) 9.9 % (2.0-9.0); NEUTROPHILS # (AUTO) 4.6 K/uL (1.8-7.7); NEUTROPHILS % (AUTO) 56.4 % (40.0-70.0); PLATELET COUNT (AUTO) 383 K/uL (150-450); RED BLOOD CELL COUNT(AUTO) 3.89 MIL/uL (4.00-5.20); RED CELL DISTRIBUTION WIDTH 17.5 % (11.5-14.5); WHITE BLOOD COUNT (AUTO) 8.1 K/uL (4.5-11.0)
[2023-07-14 15:55] LABS: ALANINE AMINOTRANSFERASE 25 U/L (12-78); ALKALINE PHOSPHATASE 70 U/L (46-116); ANION GAP 9 mmol/L (8-16); ASPARTATE AMINOTRANSFERASE 18 U/L (15-37); BILIRUBIN,TOTAL 0.5 mg/dL (0.1-1.0); CALCIUM, TOTAL 8.6 mg/dL (8.8-10.5); CARBON DIOXIDE 27 mmol/L (22-29); CHLORIDE 104 mmol/L (98-107); GLOMERULAR FILTR. RATE CALC > 60 mL/min (>60); GLUCOSE,RANDOM 93 mg/dL (70-110); POTASSIUM 3.1 mmol/L (3.5-5.1); SODIUM SERUM 140 mmol/L (136-145); TOTAL PROTEIN, SERUM 6.5 g/dL (6.4-8.2); UREA NITROGEN, BLOOD 8 mg/dL (7-18)
[2023-07-14 15:59] LABS: SARS-COV2 (COVID) ANTIGEN,FIA Negative (Negative)
[2023-07-14 16:38] LABS: ALCOHOL, BLOOD (SERUM) < 3 mg/dL (0-10)
[2023-07-14] MEDS: POTASSIUM CHLORIDE 20 MEQ ER TABLET PO ONE (18:18)
[2023-07-14 20:31] VITALS: BP 137/72; PULSE 86; RESP 16; TEMP 97.6; O2SAT 99
[2023-07-15] MEDS ORDERED: LOPERAMIDE HCL 2 MG CAPSULE PO PRN (08:15)
[2023-07-15] MEDS ORDERED: HydrOXYzine PAMOATE 50 MG CAPSULE PO PRN (08:15)
[2023-07-15] MEDS ORDERED: PALIPERIDONE PALMITATE 234 MG/1.5 ML SYRINGE IM ONE (08:15)
[2023-07-15] MEDS ORDERED: ACETAMINOPHEN 325 MG TABLET PO PRN (08:15)
[2023-07-15] MEDS ORDERED: MAGNESIUM HYDROXIDE SUSPENSION 30 ML UDCUP PO PRN (08:15)
[2023-07-15] MEDS ORDERED: MAG HYDROX/ALUMINUM HYD/SIMETH ES 30 ML SUSPENSION UDCUP PO PRN (08:15)
[2023-07-15] MEDS ORDERED: GuaiFENesin/D-METHORPHAN [SUGAR-FREE] 200-20MG/10 ML SYRUP UDCUP PO PRN (08:15)
[2023-07-15 08:34] VITALS: BP 147/94; PULSE 103; RESP 17; TEMP 97.6; O2SAT 98
[2023-07-15] MEDS: OMEGA-3/DHA/EPA/FISH OIL 1,000 MG CAPSULE PO SCH (09:23)
[2023-07-15] MEDS: MULTIVITAMINS WITH MINERALS, THERAPEUTIC TABLET PO SCH (09:23)
[2023-07-15] MEDS: FOLIC ACID 1 MG TABLET PO SCH (09:23)
[2023-07-15] MEDS: BuPROPion HCL XL 150 MG ER TABLET PO SCH (09:24)
[2023-07-15] MEDS: NALTREXONE HCL 50 MG TABLET PO SCH (09:24)
[2023-07-15] MEDS: THIAMINE 100 MG TABLET PO SCH (09:24)
[2023-07-15] MEDS: OLANZapine 5 MG RAPDIS TABLET PO PRN (11:11)
[2023-07-15] MEDS: LORazepam 2 MG TABLET PO PRN (11:11)
[2023-07-15] MEDS: OLANZapine 5 MG RAPDIS TABLET PO SCH (21:00)
[2023-07-15] MEDS: MELATONIN 5 MG TABLET PO SCH (21:00)
[2023-07-15 21:15] VITALS: BP 126/100; PULSE 109; RESP 20; TEMP 98.1; O2SAT 97
[2023-07-16 08:47] LABS: HEMOGLOBIN A1C 5.7 % (3.8-5.6)
[2023-07-16 09:00] VITALS: RESP 20
[2023-07-16 09:02] LABS: CHOL/HDL RATIO 2.9 (3.9-5.7); CHOLESTEROL 162 mg/dL (131-200); FREE T4 (FREE THYROXINE) 1.02 ng/dL (0.76-1.46); HCG,QUANTITATIVE < 1 mIU/mL (0-6); HDL CHOLESTEROL 56 mg/dL (40-60); LDL CHOL (CALC.) 89 mg/dL (0-130); POTASSIUM 3.5 mmol/L (3.5-5.1); THYROID STIMULATING HORMONE 2.04 uIU/mL (0.36-3.74); TRIGLYCERIDES 85 mg/dL (15-150)
[2023-07-16] MEDS: RisperiDONE 1 MG TABLET PO SCH (17:31)
[2023-07-16] MEDS: CIPROFLOXACIN HCL 500 MG TABLET PO SCH (17:31)
[2023-07-16 21:45] VITALS: BP 134/82; PULSE 103; RESP 20; TEMP 97.4; O2SAT 98
[2023-07-17 08:34] VITALS: BP 136/73; PULSE 97; RESP 18; TEMP 97.6; O2SAT 99
[2023-07-17 08:58] LABS: APPEARANCE,URINE HAZY (CLEAR); BILIRUBIN,URINE NEGATIVE (NEGATIVE); COLOR,URINE YELLOW (YELLOW); GLUCOSE, URINE (UA) NEGATIVE (NEGATIVE); KETONES,URINE NEGATIVE (NEGATIVE); LEUKOCYTE ESTERASE ,URINE TRACE (NEGATIVE); NITRATE,URINE NEGATIVE (NEGATIVE); OCCULT BLOOD,URINE NEGATIVE (NEGATIVE); PH,URINE 6.5 (5.0-8.0); PROTEIN,URINE NEGATIVE (NEGATIVE); SPECIFIC GRAVITIY, URINE 1.019 (1.003-1.030); UROBILINOGEN,URINE <=1.0 mg/dL (<=1.0)
[2023-07-17 09:05] LABS: HCG,QUAL URINE NEGATIVE (NEGATIVE)
[2023-07-17 09:16] LABS: SQUAMOUS EPITHELIAL CELL,UR Many /LPF (None Seen)
[2023-07-17 09:17] LABS: BACTERIA,URINE Rare /HPF (None Seen); RBC,URINE None Seen /HPF (0-2)
[2023-07-17 09:23] LABS: CALCIUM OXALATE CRYSTALS,UR Few /LPF (None Seen)
[2023-07-17 20:43] VITALS: BP 137/101; PULSE 101; TEMP 97.5; O2SAT 97
[2023-07-18 08:49] VITALS: BP 142/90; PULSE 79; RESP 18; TEMP 97.7; O2SAT 96
[2023-07-18 21:26] VITALS: BP 153/78; PULSE 95; TEMP 98; O2SAT 98
[2023-07-18] MEDS: ZOLPIDEM TARTRATE 10 MG TABLET PO PRN (22:03)
[2023-07-19 08:28] VITALS: BP 118/73; PULSE 79; RESP 16; TEMP 97.6; O2SAT 98
[2023-07-19] MEDS ORDERED: PALIPERIDONE PALMITATE 156 MG/ML SYRINGE IM ONE (09:00)
[2023-07-19] MEDS: BuPROPion HCL XL 150 MG ER TABLET PO SCH (09:37)
[2023-07-19 20:28] VITALS: BP 129/70; PULSE 70; TEMP 97.7; O2SAT 100
[2023-07-20 08:51] VITALS: BP 109/74; PULSE 85; RESP 17; TEMP 97.8; O2SAT 96
[2023-07-20 20:10] VITALS: BP 143/77; PULSE 98; RESP 18; TEMP 97.2; O2SAT 99
[2023-07-20] MEDS: OLANZapine 10 MG RAPDIS TABLET PO SCH (20:21)
[2023-07-21 08:38] VITALS: BP 109/74; PULSE 72; RESP 16; TEMP 97.6; O2SAT 98
[2023-07-21 21:30] VITALS: BP 143/85; PULSE 85; RESP 17; TEMP 97.9; O2SAT 98
[2023-07-22 10:30] VITALS: BP 122/64; PULSE 77; RESP 18; TEMP 97.8; O2SAT 98
[2023-07-22 20:01] VITALS: BP 132/69; PULSE 84; RESP 18; TEMP 97.8
[2023-07-23] MEDS: BuPROPion HCL XL 150 MG ER TABLET PO SCH (08:23)
[2023-07-23 09:12] VITALS: BP 143/92; PULSE 100; RESP 17; TEMP 97.1; O2SAT 98
[2023-07-23 20:36] VITALS: BP 113/67; PULSE 90; RESP 16; TEMP 97.5; O2SAT 97
[2023-07-24 08:30] VITALS: BP 134/81; PULSE 96; RESP 17; TEMP 97.7; O2SAT 97
[2023-07-24 22:19] VITALS: BP 122/70; PULSE 79; RESP 18; TEMP 97.8; O2SAT 96
[2023-07-25 08:23] VITALS: BP 126/65; PULSE 86; RESP 16; TEMP 97.9; O2SAT 99
[2023-07-25 23:55] VITALS: BP 124/72; PULSE 82; RESP 18; TEMP 97.6; O2SAT 98
[2023-07-26 00:10] VITALS: BP 125/69; PULSE 67; RESP 18; TEMP 98.7; O2SAT 97
[2023-07-26] MEDS: BuPROPion HCL XL 150 MG ER TABLET PO SCH (08:34)
[2023-07-26 10:12] VITALS: BP 135/76; PULSE 70; RESP 17; TEMP 97.2; O2SAT 99
[2023-07-27 08:47] VITALS: BP 106/74; PULSE 72; RESP 16; TEMP 98; O2SAT 98
[2023-07-27 20:18] VITALS: BP 123/72; PULSE 79; RESP 16; TEMP 97.8; O2SAT 98
[2023-07-28 08:37] VITALS: BP 118/72; PULSE 73; RESP 17; TEMP 97.3; O2SAT 99
[2023-07-28 21:22] VITALS: BP 103/67; PULSE 80; RESP 16; TEMP 97.9
[2023-07-29 08:26] VITALS: BP 119/79; PULSE 82; RESP 16; TEMP 97.9; O2SAT 98
[2023-07-29 21:12] VITALS: BP 118/68; PULSE 77; RESP 17; TEMP 97.8
[2023-07-30 08:23] VITALS: BP 107/62; PULSE 66; RESP 17; TEMP 97.6; O2SAT 96
[2023-07-30 21:04] VITALS: BP 148/80; PULSE 93; RESP 18; TEMP 97; O2SAT 98
[2023-07-31 18:50] VITALS: BP 104/60; PULSE 73; RESP 16; TEMP 97.5; O2SAT 98
[2023-07-31 22:05] VITALS: BP 102/60; PULSE 77; RESP 16; TEMP 97.2; O2SAT 98
[2023-08-01 08:25] VITALS: BP 100/57; PULSE 69; RESP 16; TEMP 97.2; O2SAT 98
[2023-08-01 21:01] VITALS: BP 92/51; PULSE 79; TEMP 97.5; O2SAT 97
[2023-08-02 08:12] VITALS: BP 100/62; PULSE 69; RESP 16; TEMP 97.5; O2SAT 100
[2023-08-02 20:57] VITALS: BP 98/51; PULSE 71; RESP 16; TEMP 98.6; O2SAT 100
[2023-08-03 08:30] VITALS: BP 100/62; PULSE 66; RESP 16; TEMP 97.7; O2SAT 99
[2023-08-03 20:48] VITALS: BP 110/47; PULSE 70; RESP 16; TEMP 97.3; O2SAT 99
[2023-08-04 08:27] VITALS: BP 110/74; PULSE 78; RESP 16; TEMP 98; O2SAT 100
[2023-08-04 20:16] VITALS: BP 91/62; PULSE 73; RESP 16; TEMP 97.5; O2SAT 99
[2023-08-05 09:22] VITALS: BP 101/53; PULSE 69; RESP 17; TEMP 97.8; O2SAT 99
[2023-08-05 21:25] VITALS: BP 97/56; PULSE 75; RESP 17; TEMP 97.7; O2SAT 100
[2023-08-06 08:25] VITALS: BP 100/62; PULSE 72; RESP 16; TEMP 97.6; O2SAT 98
[2023-08-06 20:38] VITALS: BP 96/56; PULSE 68; RESP 16; TEMP 97.7; O2SAT 98
[2023-08-07 08:17] VITALS: BP 100/65; PULSE 80; RESP 16; TEMP 97.6; O2SAT 98
[2023-08-07 20:18] VITALS: BP 102/76; PULSE 89; RESP 17; TEMP 97.5; O2SAT 99
[2023-08-08 08:17] VITALS: BP 99/59; PULSE 69; RESP 16; TEMP 97.9; O2SAT 99
[2023-08-08] MEDS ORDERED: GABAPENTIN 300 MG CAPSULE PO PRN (15:00)
[2023-08-09 08:25] LABS: BASOPHILS % (AUTO) 0.4 % (0.0-2.0); HEMATOCRIT 36.5 % (36-46); HEMOGLOBIN 11.9 g/dL (12.0-16.0); LYMPHOCYTES # (AUTO) 3.5 K/uL (1.0-4.8); LYMPHOCYTES % (AUTO) 33.4 % (22.0-44.0); MEAN CORPUSCULAR HEMOGLOBIN 27.6 pg (26.0-34.0); MEAN CORPUSCULAR HGB CONC 32.8 G/dL (31.0-37.0); MEAN CORPUSCULAR VOLUME 84 fL (80-100); MONOCYTES # (AUTO) 0.9 K/uL (0.1-1.0); MONOCYTES % (AUTO) 8.7 % (2.0-9.0); NEUTROPHILS # (AUTO) 5.7 K/uL (1.8-7.7); NEUTROPHILS % (AUTO) 54.5 % (40.0-70.0); PLATELET COUNT (AUTO) 346 K/uL (150-450); RED BLOOD CELL COUNT(AUTO) 4.32 MIL/uL (4.00-5.20); RED CELL DISTRIBUTION WIDTH 19.2 % (11.5-14.5); WHITE BLOOD COUNT (AUTO) 10.4 K/uL (4.5-11.0)
[2023-08-09] MEDS: CloZAPine 25 MG TABLET PO SCH (15:06)
[2023-08-09 20:12] VITALS: BP 102/69; PULSE 73; RESP 16; TEMP 97.3; O2SAT 100
[2023-08-10 08:17] VITALS: BP 100/60; PULSE 70; RESP 16; TEMP 97.8; O2SAT 99
[2023-08-10] MEDS: CloZAPine 25 MG TABLET PO SCH ×2 (08:25→20:28)
[2023-08-10 20:30] VITALS: BP 98/60; PULSE 90; RESP 18; TEMP 97; O2SAT 100
[2023-08-11] MEDS: CloZAPine 25 MG TABLET PO SCH ×2 (08:06→20:56)
[2023-08-11 08:38] VITALS: BP 116/70; PULSE 73; RESP 16; TEMP 97.3; O2SAT 100
[2023-08-11 20:00] VITALS: BP 112/68; PULSE 80; RESP 18; TEMP 97.6; O2SAT 98
[2023-08-11] MEDS: OLANZapine 5 MG RAPDIS TABLET PO SCH (20:56)
[2023-08-12] MEDS: CloZAPine 25 MG TABLET PO SCH (08:31)
[2023-08-12 10:24] VITALS: BP 106/76; PULSE 84; RESP 17; TEMP 97.7; O2SAT 98
[2023-08-12 20:00] VITALS: BP 103/59; PULSE 73; RESP 17; TEMP 98.3; O2SAT 97
[2023-08-12] MEDS: OLANZapine 5 MG RAPDIS TABLET PO SCH (20:10)
[2023-08-13] MEDS ORDERED: TUBERCULIN, PURIFIED PROTEIN DERIVATIVE 5 TU/0.1 ML SYRINGE ID ONE (09:00)
[2023-08-13 10:49] VITALS: BP 110/64; PULSE 77; RESP 18; TEMP 97.8; O2SAT 97
[2023-08-13 21:18] VITALS: BP 112/68; PULSE 69; RESP 16; TEMP 97; O2SAT 98
[2023-08-14 08:14] VITALS: BP 104/61; PULSE 77; RESP 17; TEMP 97.5; O2SAT 98
[2023-08-14] MEDS: CloZAPine 25 MG TABLET PO SCH (08:16)
[2023-08-14] MEDS: CloZAPine 100 MG TABLET PO SCH (20:09)
[2023-08-14 20:21] VITALS: BP 100/62; PULSE 76; RESP 17; TEMP 97.5; O2SAT 98
[2023-08-15] MEDS: CloZAPine 25 MG TABLET PO SCH (08:13)
[2023-08-15] MEDS ORDERED: TUBERCULIN, PURIFIED PROTEIN DERIVATIVE 5 TU/0.1 ML SYRINGE ID ONE (16:15)
[2023-08-15] MEDS: CloZAPine 100 MG TABLET PO SCH (20:01)
[2023-08-15] MEDS: OLANZapine 5 MG RAPDIS TABLET PO SCH (20:01)
[2023-08-15 21:02] VITALS: BP 118/89; PULSE 76; RESP 17; TEMP 96.7; O2SAT 100
[2023-08-16] MEDS: CloZAPine 25 MG TABLET PO SCH (08:10)
[2023-08-16 08:17] VITALS: BP 112/69; PULSE 83; RESP 16; TEMP 97.6; O2SAT 99
[2023-08-16 08:35] LABS: BASOPHILS % (AUTO) 0.3 % (0.0-2.0); EOSINOPHILS % (AUTO) 2.5 % (1.0-6.0); HEMATOCRIT 36.1 % (36-46); HEMOGLOBIN 11.6 g/dL (12.0-16.0); LYMPHOCYTES # (AUTO) 3.3 K/uL (1.0-4.8); LYMPHOCYTES % (AUTO) 29.5 % (22.0-44.0); MEAN CORPUSCULAR HEMOGLOBIN 27.6 pg (26.0-34.0); MEAN CORPUSCULAR VOLUME 86 fL (80-100); MONOCYTES # (AUTO) 0.8 K/uL (0.1-1.0); MONOCYTES % (AUTO) 6.9 % (2.0-9.0); NEUTROPHILS # (AUTO) 6.8 K/uL (1.8-7.7); NEUTROPHILS % (AUTO) 60.8 % (40.0-70.0); PLATELET COUNT (AUTO) 314 K/uL (150-450); RED BLOOD CELL COUNT(AUTO) 4.19 MIL/uL (4.00-5.20); RED CELL DISTRIBUTION WIDTH 19.3 % (11.5-14.5); WHITE BLOOD COUNT (AUTO) 11.2 K/uL (4.5-11.0)
[2023-08-16] MEDS: TUBERCULIN, PURIFIED PROTEIN DERIVATIVE 5 TU/0.1 ML SYRINGE ID ONE (13:01)
[2023-08-16] MEDS: CloZAPine 100 MG TABLET PO SCH (20:28)
[2023-08-16 20:42] VITALS: BP 105/75; PULSE 94; RESP 17; TEMP 97.3; O2SAT 99
[2023-08-17] MEDS: CloZAPine 100 MG TABLET PO SCH (08:09)
[2023-08-17 08:53] VITALS: BP 115/70; PULSE 96; RESP 18; TEMP 97.7; O2SAT 100
[2023-08-17 20:08] VITALS: BP 98/60; PULSE 79; RESP 18; TEMP 97.2; O2SAT 99
[2023-08-18 09:12] VITALS: BP 116/63; PULSE 77; RESP 18; TEMP 96.9; O2SAT 97
[2023-08-18 23:12] VITALS: BP 117/62; PULSE 76; RESP 17; TEMP 96.6; O2SAT 98
[2023-08-19] MEDS: CloZAPine 25 MG TABLET PO SCH (08:33)
[2023-08-19 09:04] VITALS: BP 119/76; PULSE 91; RESP 18; TEMP 98.1; O2SAT 97
[2023-08-19] MEDS: PROMETHAZINE HCL 25 MG TABLET PO PRN (18:04)
[2023-08-19 20:22] VITALS: BP 118/75; PULSE 78; RESP 18; TEMP 98.3; O2SAT 96
[2023-08-19] MEDS: CloZAPine 100 MG TABLET PO SCH (20:29)
[2023-08-20 08:18] VITALS: BP 100/61; PULSE 89; RESP 18; TEMP 98.5; O2SAT 99
[2023-08-20] MEDS: CloZAPine 25 MG TABLET PO SCH (08:54)
[2023-08-20] MEDS: ONDANSETRON HCL 4 MG/2 ML VIAL IM PRN (12:58)
[2023-08-20 14:50] VITALS: BP 116/76; PULSE 98; RESP 18; TEMP 98.6; O2SAT 99
[2023-08-20] MEDS: CloZAPine 100 MG TABLET PO SCH (21:00)
[2023-08-21] MEDS ORDERED: CloZAPine 100 MG TABLET PO SCH ×2 (09:00→21:00)
== END 2023-08-20 23:30 | disposition short-term general hospital (02) | DRG 750 ==
LOC: EMS 13:27 → B3A 17:31
PROVIDERS: ADMIT Psychiatry & Neurology Psychiatry; ATTEND Psychiatry & Neurology Psychiatry
PROC: GZHZZZZ Group Psychotherapy (ICD-10-PCS; principal; 2023-07-14)
PROC: GZ51ZZZ Individual Psychotherapy, Behavioral (ICD-10-PCS; 2023-07-14)
PROC: GZ58ZZZ Individual Psychotherapy, Cognitive-Behavioral (ICD-10-PCS; 2023-07-14)
PROC: GZ56ZZZ Individual Psychotherapy, Supportive (ICD-10-PCS; 2023-07-15)
DX: F20.0 Paranoid schizophrenia (principal); Z91.148 Patient's other noncompliance with medication regimen for other reason; F15.90 Other stimulant use, unspecified, uncomplicated; F41.9 Anxiety disorder, unspecified; F90.9 Attention-deficit hyperactivity disorder, unspecified type; Z20.822 Contact with and (suspected) exposure to COVID-19; F32.A Depression, unspecified; G47.00 Insomnia, unspecified; F94.0 Selective mutism; Z59.02 Unsheltered homelessness; Z79.899 Other long term (current) drug therapy
CPT/HCPCS: 80053; 80061; 81001; 83036; 84132; 84439; 84443; 84702; 84703; 85025; 86592; 99285; G0480; J1200; J2060; J2405; Q9967

== ENCOUNTER 2023-08-22 10:49 | Inpatient (IN) | payer MEDICAID ==
[~2023-08-22] VITALS: Ht 167.6 cm; Wt 93.0 kg
[~2023-08-22 10:49] MED LIST changes: -CIPR500T10 PO
[2023-08-23] MEDS ORDERED: BUPR-514 PO (18:41)
[2023-08-23] MEDS ORDERED: CIPR250T6 PO (18:42)
[2023-08-23] MEDS ORDERED: CLOZ100T61 PO (18:43)
[2023-08-23] MEDS ORDERED: HEPA500018 SQ (18:44)
[2023-08-23] MEDS ORDERED: DOCU-385 PO (18:44)
[2023-08-23] MEDS ORDERED: ACET-784 PO (18:46)
[2023-08-23] MEDS ORDERED: GABA-1181 PO (18:49)
[2023-08-23] MEDS ORDERED: OLANZapine 5 MG RAPDIS TABLET PO PRN (20:00)
[2023-08-23] MEDS ORDERED: LORazepam 2 MG TABLET PO PRN (20:00)
[2023-08-23 21:52] VITALS: BP 117/60; PULSE 97; RESP 18; TEMP 98; O2SAT 100
[2023-08-23] MEDS ORDERED: MAGNESIUM HYDROXIDE SUSPENSION 30 ML UDCUP PO PRN (22:30)
[2023-08-23] MEDS ORDERED: LOPERAMIDE HCL 2 MG CAPSULE PO PRN (22:30)
[2023-08-23] MEDS ORDERED: PROMETHAZINE HCL 25 MG TABLET PO PRN (22:30)
[2023-08-23] MEDS ORDERED: HydrOXYzine PAMOATE 50 MG CAPSULE PO PRN (22:30)
[2023-08-23] MEDS ORDERED: GABAPENTIN 300 MG CAPSULE PO PRN (22:30)
[2023-08-24] MEDS: THIAMINE 100 MG TABLET PO SCH (07:36)
[2023-08-24] MEDS: MULTIVITAMINS WITH MINERALS, THERAPEUTIC TABLET PO SCH (07:36)
[2023-08-24] MEDS: FOLIC ACID 1 MG TABLET PO SCH (07:36)
[2023-08-24 08:26] VITALS: BP 110/66; PULSE 93; RESP 16; TEMP 97.7; O2SAT 96
[2023-08-24] MEDS: CIPROFLOXACIN HCL 500 MG TABLET PO SCH (16:27)
[2023-08-24] MEDS: CloZAPine 100 MG TABLET PO SCH (20:09)
[2023-08-24] MEDS: MELATONIN 5 MG TABLET PO SCH (20:10)
[2023-08-24 20:13] VITALS: BP 123/86; PULSE 100; RESP 17; TEMP 96.8; O2SAT 98
[2023-08-25 08:20] VITALS: BP 114/66; PULSE 90; RESP 17; TEMP 97.3; O2SAT 96
[2023-08-25 20:00] VITALS: BP 95/53; PULSE 94; RESP 16; TEMP 97.5; O2SAT 95
[2023-08-26 08:11] VITALS: BP 100/62; PULSE 87; RESP 16; TEMP 98.3; O2SAT 97
[2023-08-26 08:21] LABS: BASOPHILS % (AUTO) 0.2 % (0.0-2.0); EOSINOPHILS % (AUTO) 4.5 % (1.0-6.0); HEMATOCRIT 33.6 % (36-46); LYMPHOCYTES # (AUTO) 1.8 K/uL (1.0-4.8); LYMPHOCYTES % (AUTO) 13.6 % (22.0-44.0); MEAN CORPUSCULAR HEMOGLOBIN 27.9 pg (26.0-34.0); MEAN CORPUSCULAR HGB CONC 32.8 G/dL (31.0-37.0); MEAN CORPUSCULAR VOLUME 85 fL (80-100); MONOCYTES # (AUTO) 0.9 K/uL (0.1-1.0); MONOCYTES % (AUTO) 6.8 % (2.0-9.0); NEUTROPHILS # (AUTO) 9.8 K/uL (1.8-7.7); NEUTROPHILS % (AUTO) 74.9 % (40.0-70.0); PLATELET COUNT (AUTO) 397 K/uL (150-450); RED BLOOD CELL COUNT(AUTO) 3.96 MIL/uL (4.00-5.20); RED CELL DISTRIBUTION WIDTH 17.8 % (11.5-14.5); WHITE BLOOD COUNT (AUTO) 13.1 K/uL (4.5-11.0)
[2023-08-26] MEDS: ETHYL ALCOHOL 62% ANTISEPTIC NASAL SANITIZER 0.6 ML AMPUL NASAL SCH (08:39)
[2023-08-26 20:25] VITALS: BP 145/88; PULSE 89; RESP 16; TEMP 97.3; O2SAT 96
[2023-08-27 09:12] VITALS: BP 118/54; PULSE 92; RESP 18; TEMP 97.8; O2SAT 92
[2023-08-27 21:34] VITALS: BP 113/75; PULSE 102; RESP 16; TEMP 97.8; O2SAT 99
[2023-08-28 11:04] VITALS: BP 115/83; PULSE 100; RESP 17; TEMP 97.7; O2SAT 98
[2023-08-28 22:14] VITALS: BP 111/80; PULSE 99; RESP 16; TEMP 97.8; O2SAT 99
[2023-08-29] MEDS: ZOLPIDEM TARTRATE 10 MG TABLET PO PRN (00:35)
[2023-08-29 08:38] VITALS: BP 112/63; PULSE 104; RESP 17; TEMP 97.6; O2SAT 99
[2023-08-29 20:07] VITALS: BP 119/88; PULSE 95; RESP 16; TEMP 96.7; O2SAT 99
[2023-08-30 08:55] VITALS: BP 110/77; PULSE 60; RESP 16; TEMP 97.5; O2SAT 99
[2023-08-30 20:06] LABS: CLOZAPINE & NORCLOZAPINE 779 ng/mL; NORCLOZAPINE 196 ng/mL (Not Estab.)
[2023-08-30 20:14] VITALS: BP 106/70; PULSE 93; RESP 20; TEMP 98; O2SAT 98
[2023-08-31 09:31] VITALS: BP 108/74; PULSE 91; RESP 16; TEMP 97.8; O2SAT 95
[2023-09-01 00:20] VITALS: BP 119/86; PULSE 87; RESP 16; TEMP 97.8; O2SAT 96
[2023-09-01 08:10] VITALS: BP 107/74; PULSE 85; RESP 16; TEMP 97.5; O2SAT 95
[2023-09-01 20:00] VITALS: BP 123/92; PULSE 100; RESP 16; TEMP 97.1; O2SAT 96
[2023-09-02 11:09] LABS: BASOPHILS % (AUTO) 0.6 % (0.0-2.0); HEMATOCRIT 36.4 % (36-46); HEMOGLOBIN 11.7 g/dL (12.0-16.0); LYMPHOCYTES # (AUTO) 2.8 K/uL (1.0-4.8); LYMPHOCYTES % (AUTO) 16.8 % (22.0-44.0); MEAN CORPUSCULAR HEMOGLOBIN 27.3 pg (26.0-34.0); MEAN CORPUSCULAR VOLUME 85 fL (80-100); MONOCYTES # (AUTO) 0.9 K/uL (0.1-1.0); MONOCYTES % (AUTO) 5.2 % (2.0-9.0); NEUTROPHILS # (AUTO) 10.1 K/uL (1.8-7.7); NEUTROPHILS % (AUTO) 60.7 % (40.0-70.0); PLATELET COUNT (AUTO) 539 K/uL (150-450); RED BLOOD CELL COUNT(AUTO) 4.27 MIL/uL (4.00-5.20); RED CELL DISTRIBUTION WIDTH 17.1 % (11.5-14.5); WHITE BLOOD COUNT (AUTO) 16.6 K/uL (4.5-11.0)
[2023-09-02 11:10] LABS: EOSINOPHILS % (AUTO) 16.7 % (1.0-6.0)
[2023-09-02 14:48] VITALS: BP 124/88; PULSE 107; RESP 16; TEMP 97.4; O2SAT 97
[2023-09-02 20:41] VITALS: BP 136/91; PULSE 98; RESP 17; TEMP 97; O2SAT 97
[2023-09-03 08:23] VITALS: BP 99/60; PULSE 70; RESP 16; TEMP 97.9; O2SAT 99
[2023-09-03 20:00] VITALS: BP 120/66; PULSE 107; RESP 17; TEMP 97.7; O2SAT 97
[2023-09-04 08:24] LABS: APPEARANCE,URINE CLEAR (CLEAR); BILIRUBIN,URINE NEGATIVE (NEGATIVE); COLOR,URINE YELLOW (YELLOW); GLUCOSE, URINE (UA) NEGATIVE (NEGATIVE); KETONES,URINE NEGATIVE (NEGATIVE); LEUKOCYTE ESTERASE ,URINE NEGATIVE (NEGATIVE); NITRATE,URINE NEGATIVE (NEGATIVE); OCCULT BLOOD,URINE NEGATIVE (NEGATIVE); PROTEIN,URINE NEGATIVE (NEGATIVE); SPECIFIC GRAVITIY, URINE 1.026 (1.003-1.030); UROBILINOGEN,URINE <=1.0 mg/dL (<=1.0)
[2023-09-04 08:41] LABS: BACTERIA,URINE None Seen /HPF (None Seen); CALCIUM OXALATE CRYSTALS,UR Many /LPF (None Seen); RBC,URINE 0-2 /HPF (0-2); SQUAMOUS EPITHELIAL CELL,UR Many /LPF (None Seen); WBC,URINE None Seen /HPF (0-5)
[2023-09-04 08:43] VITALS: BP 101/66; PULSE 93; RESP 16; TEMP 97.3; O2SAT 98
[2023-09-04 20:58] VITALS: BP 110/75; PULSE 94; RESP 18; TEMP 97.3; O2SAT 97
[2023-09-05 08:33] VITALS: BP 130/87; PULSE 100; RESP 16; TEMP 96.8; O2SAT 98
[2023-09-05 21:00] VITALS: BP 109/77; PULSE 100; RESP 16; TEMP 98.2; O2SAT 96
[2023-09-06 09:19] VITALS: BP 132/86; PULSE 85; RESP 18; TEMP 97.1; O2SAT 97
[2023-09-06 20:36] VITALS: BP 124/80; PULSE 68; RESP 18; TEMP 98; O2SAT 100
[2023-09-07 10:43] VITALS: BP 125/83; PULSE 108; RESP 17; TEMP 97.6; O2SAT 97
[2023-09-07 15:07] LABS: CLOZAPINE & NORCLOZAPINE 445 ng/mL; NORCLOZAPINE 141 ng/mL (Not Estab.)
[2023-09-07 20:23] VITALS: BP 128/96; PULSE 100; RESP 19; TEMP 97.3; O2SAT 97
[2023-09-08 08:33] VITALS: BP 114/67; PULSE 88; RESP 17; TEMP 98.3; O2SAT 97
[2023-09-08 21:34] VITALS: BP 120/98; PULSE 98; RESP 18; TEMP 97.2; O2SAT 97
[2023-09-09 08:20] VITALS: BP 104/72; PULSE 95; RESP 16; TEMP 98.2; O2SAT 95
[2023-09-09 08:48] LABS: BASOPHILS % (AUTO) 0.7 % (0.0-2.0); HEMATOCRIT 37.7 % (36-46); HEMOGLOBIN 11.9 g/dL (12.0-16.0); LYMPHOCYTES # (AUTO) 3.4 K/uL (1.0-4.8); LYMPHOCYTES % (AUTO) 25.9 % (22.0-44.0); MEAN CORPUSCULAR HGB CONC 31.7 G/dL (31.0-37.0); MEAN CORPUSCULAR VOLUME 85 fL (80-100); MONOCYTES # (AUTO) 0.7 K/uL (0.1-1.0); MONOCYTES % (AUTO) 5.2 % (2.0-9.0); NEUTROPHILS # (AUTO) 5.5 K/uL (1.8-7.7); PLATELET COUNT (AUTO) 438 K/uL (150-450); RED BLOOD CELL COUNT(AUTO) 4.41 MIL/uL (4.00-5.20); RED CELL DISTRIBUTION WIDTH 17.7 % (11.5-14.5); WHITE BLOOD COUNT (AUTO) 13.1 K/uL (4.5-11.0)
[2023-09-09 08:51] LABS: EOSINOPHILS % (AUTO) 26.2 % (1.0-6.0)
[2023-09-09 09:07] LABS: CLOZAPINE & NORCLOZAPINE 374 ng/mL; NORCLOZAPINE 127 ng/mL (Not Estab.)
[2023-09-09 20:00] VITALS: BP 113/76; PULSE 96; RESP 16; TEMP 97.3; O2SAT 95
[2023-09-10 08:14] VITALS: BP 131/82; PULSE 83; RESP 17; TEMP 97.3; O2SAT 96
[2023-09-10 20:27] VITALS: BP 132/89; PULSE 110; RESP 16; TEMP 97.7; O2SAT 97
[2023-09-11 08:17] VITALS: BP 123/79; PULSE 100; RESP 16; TEMP 97.7; O2SAT 97
[2023-09-11 20:45] VITALS: BP 130/82; PULSE 95; RESP 17; TEMP 97; O2SAT 98
[2023-09-12 08:19] VITALS: BP 100/66; PULSE 97; RESP 16; TEMP 98.6; O2SAT 98
[2023-09-12 21:19] VITALS: BP 124/90; PULSE 106; RESP 18; TEMP 97.5; O2SAT 97
[2023-09-13 08:20] VITALS: BP 108/72; PULSE 97; RESP 16; TEMP 97.8; O2SAT 97
[2023-09-13 20:44] VITALS: BP 100/58; PULSE 100; RESP 17; TEMP 97.8; O2SAT 97
[2023-09-14 09:05] VITALS: BP 100/70; PULSE 93; RESP 18; TEMP 97.7; O2SAT 96
[2023-09-14 20:00] VITALS: BP 128/78; PULSE 97; RESP 16; TEMP 97.3; O2SAT 96
[2023-09-14] MEDS: CloZAPine 100 MG TABLET PO SCH (20:08)
[2023-09-15 08:44] VITALS: BP 130/87; PULSE 95; RESP 16; TEMP 97.7; O2SAT 97
[2023-09-15 20:13] VITALS: BP 136/70; PULSE 103; RESP 16; TEMP 97.5; O2SAT 97
[2023-09-16 08:32] VITALS: BP 113/75; PULSE 100; RESP 17; TEMP 97.5; O2SAT 97
[2023-09-16 08:33] LABS: HEMATOCRIT 37.6 % (36-46); HEMOGLOBIN 12.4 g/dL (12.0-16.0); MEAN CORPUSCULAR HEMOGLOBIN 28.3 pg (26.0-34.0); MEAN CORPUSCULAR HGB CONC 32.9 G/dL (31.0-37.0); MEAN CORPUSCULAR VOLUME 86 fL (80-100); PLATELET COUNT (AUTO) 324 K/uL (150-450); RED BLOOD CELL COUNT(AUTO) 4.37 MIL/uL (4.00-5.20); WHITE BLOOD COUNT (AUTO) 8.9 K/uL (4.5-11.0)
[2023-09-16 09:15] LABS: BAND NEUTROPHILS % (MANUAL) 3 % (0-5); EOSINOPHILS % (MANUAL) 3 % (1-6); LYMPHOCYTES % (MANUAL) 36 % (22-44); MONOCYTES % (MANUAL) 3 % (2-9); RBC MORPHOLOGY COMMENT NORMAL RBC MORPH; SEGMENTED NEUTROPHILS % 55 % (40-70); TOTAL CELLS COUNTED 100
[2023-09-16 20:25] VITALS: BP 123/76; PULSE 102; RESP 18; TEMP 98.2; O2SAT 96
[2023-09-17 08:16] VITALS: BP 108/63; PULSE 100; RESP 16; TEMP 98.2; O2SAT 98
[2023-09-17 20:00] VITALS: BP 88/64; PULSE 100; RESP 16; TEMP 97.8; O2SAT 16
[2023-09-18 08:09] VITALS: BP 104/66; PULSE 75; RESP 18; TEMP 97.8; O2SAT 100
[2023-09-18 20:00] VITALS: BP 128/85; PULSE 112; RESP 17; TEMP 98.1; O2SAT 97
[2023-09-19 08:16] VITALS: BP 103/64; PULSE 90; RESP 16; TEMP 98.2; O2SAT 97
[2023-09-19 20:00] VITALS: BP 106/61; PULSE 95; RESP 16; TEMP 97.5; O2SAT 96
[2023-09-20 09:27] VITALS: BP 103/64; PULSE 100; RESP 17; TEMP 97.6; O2SAT 97
[2023-09-20 20:00] VITALS: BP 100/60; PULSE 96; RESP 16; TEMP 97.5; O2SAT 96
[2023-09-21 08:12] VITALS: BP 106/63; PULSE 74; RESP 16; TEMP 97.6; O2SAT 98
[2023-09-21 20:11] VITALS: BP 100/62; PULSE 94; RESP 17; TEMP 97.7
[2023-09-22 08:22] VITALS: BP 102/62; PULSE 95; RESP 16; TEMP 97.3; O2SAT 97
[2023-09-22] MEDS: CloZAPine 100 MG TABLET PO SCH (20:02)
[2023-09-22 20:49] VITALS: BP 96/58; PULSE 90; RESP 16; TEMP 97.8; O2SAT 95
[2023-09-23] MEDS: CloZAPine 100 MG TABLET PO SCH (08:11)
[2023-09-23 08:17] LABS: BASOPHILS % (AUTO) 0.5 % (0.0-2.0); EOSINOPHILS % (AUTO) 13.2 % (1.0-6.0); HEMATOCRIT 35.4 % (36-46); HEMOGLOBIN 11.6 g/dL (12.0-16.0); LYMPHOCYTES # (AUTO) 2.7 K/uL (1.0-4.8); LYMPHOCYTES % (AUTO) 34.5 % (22.0-44.0); MEAN CORPUSCULAR HEMOGLOBIN 28.4 pg (26.0-34.0); MEAN CORPUSCULAR HGB CONC 32.9 G/dL (31.0-37.0); MEAN CORPUSCULAR VOLUME 86 fL (80-100); MONOCYTES # (AUTO) 0.7 K/uL (0.1-1.0); MONOCYTES % (AUTO) 9.1 % (2.0-9.0); NEUTROPHILS # (AUTO) 3.3 K/uL (1.8-7.7); NEUTROPHILS % (AUTO) 42.7 % (40.0-70.0); PLATELET COUNT (AUTO) 295 K/uL (150-450); RED CELL DISTRIBUTION WIDTH 17.8 % (11.5-14.5); WHITE BLOOD COUNT (AUTO) 7.8 K/uL (4.5-11.0)
[2023-09-23 08:20] VITALS: BP 106/70; PULSE 79; RESP 16; TEMP 98; O2SAT 96
[2023-09-23 22:33] VITALS: BP 111/68; PULSE 83; RESP 18; TEMP 98.2; O2SAT 98
[2023-09-24 08:08] VITALS: BP 110/71; PULSE 86; RESP 18; TEMP 97.1; O2SAT 96
[2023-09-24 20:34] VITALS: BP 135/90; PULSE 102; RESP 19; TEMP 97; O2SAT 96
[2023-09-25 10:41] VITALS: BP 138/92; PULSE 91; RESP 18; TEMP 97.6; O2SAT 100
[2023-09-25 20:28] VITALS: BP 100/62; PULSE 65; RESP 18; TEMP 97.4; O2SAT 99
[2023-09-26 07:59] VITALS: BP 100/55; PULSE 95; RESP 16; TEMP 97.8; O2SAT 97
[2023-09-26 12:15] VITALS: BP 112/68; PULSE 96; RESP 16; TEMP 97.6; O2SAT 98
[2023-09-26] MEDS: CloZAPine 100 MG TABLET PO SCH (20:08)
[2023-09-26 20:15] VITALS: BP 107/56; PULSE 108; RESP 20; TEMP 97.3; O2SAT 97
[2023-09-27 08:06] LABS: CLOZAPINE & NORCLOZAPINE <40 ng/mL; NORCLOZAPINE <20 ng/mL (Not Estab.)
[2023-09-27 08:24] VITALS: BP 112/69; PULSE 97; RESP 16; TEMP 98.4; O2SAT 97
[2023-09-27 20:13] VITALS: BP 125/92; PULSE 73; RESP 16; TEMP 98.2; O2SAT 97
[2023-09-28 08:28] VITALS: BP 100/75; PULSE 96; RESP 16; TEMP 98; O2SAT 96
[2023-09-28 21:37] VITALS: BP 118/78; PULSE 85; RESP 18; TEMP 97.3; O2SAT 97
[2023-09-29 08:13] VITALS: BP 112/72; PULSE 72; RESP 16; TEMP 97.6; O2SAT 97
[2023-09-29] MEDS: MAG HYDROX/ALUMINUM HYD/SIMETH ES 30 ML SUSPENSION UDCUP PO PRN (17:54)
[2023-09-29 20:00] VITALS: BP 117/78; PULSE 93; RESP 16; TEMP 97.8; O2SAT 96
[2023-09-30 09:09] LABS: BASOPHILS % (AUTO) 0.7 % (0.0-2.0); EOSINOPHILS % (AUTO) 5.6 % (1.0-6.0); HEMATOCRIT 36.1 % (36-46); HEMOGLOBIN 11.9 g/dL (12.0-16.0); LYMPHOCYTES # (AUTO) 2.6 K/uL (1.0-4.8); LYMPHOCYTES % (AUTO) 31.3 % (22.0-44.0); MEAN CORPUSCULAR HEMOGLOBIN 28.8 pg (26.0-34.0); MEAN CORPUSCULAR VOLUME 87 fL (80-100); MONOCYTES # (AUTO) 0.6 K/uL (0.1-1.0); MONOCYTES % (AUTO) 6.8 % (2.0-9.0); NEUTROPHILS # (AUTO) 4.5 K/uL (1.8-7.7); NEUTROPHILS % (AUTO) 55.6 % (40.0-70.0); PLATELET COUNT (AUTO) 376 K/uL (150-450); RED BLOOD CELL COUNT(AUTO) 4.13 MIL/uL (4.00-5.20); RED CELL DISTRIBUTION WIDTH 17.3 % (11.5-14.5); WHITE BLOOD COUNT (AUTO) 8.2 K/uL (4.5-11.0)
[2023-09-30 09:45] VITALS: BP 129/70; PULSE 90; RESP 18; TEMP 97.7; O2SAT 100
[2023-09-30 20:08] VITALS: BP 116/76; PULSE 98; RESP 19; TEMP 98.4; O2SAT 100
[2023-10-01 08:32] VITALS: BP 108/70; PULSE 90; RESP 18; TEMP 98; O2SAT 100
[2023-10-01 20:05] VITALS: BP 119/75; PULSE 85; RESP 17; TEMP 97.5; O2SAT 98
[2023-10-02 08:14] VITALS: BP 100/61; PULSE 100; RESP 16; TEMP 98; O2SAT 97
[2023-10-02 20:00] VITALS: BP 110/74; PULSE 93; RESP 16; TEMP 97.8; O2SAT 97
[2023-10-03 08:15] VITALS: BP 114/73; PULSE 94; RESP 18; TEMP 97.5; O2SAT 96
[2023-10-03 20:05] VITALS: BP 115/72; PULSE 73; RESP 19; TEMP 98; O2SAT 98
[2023-10-04 08:11] VITALS: BP 100/66; PULSE 93; RESP 16; TEMP 97.5; O2SAT 97
[2023-10-04 20:00] VITALS: BP 132/91; PULSE 97; RESP 16; TEMP 97.5; O2SAT 98
[2023-10-05 08:30] VITALS: BP 120/70; PULSE 71; RESP 16; TEMP 98.4; O2SAT 96
[2023-10-05 20:04] VITALS: BP 133/91; PULSE 114; RESP 18; TEMP 97.4; O2SAT 96
[2023-10-06 08:09] VITALS: BP 105/62; PULSE 98; RESP 16; TEMP 98; O2SAT 97
[2023-10-06 20:00] VITALS: BP 134/95; PULSE 100; RESP 16; TEMP 98.4; O2SAT 97
[2023-10-07 08:14] VITALS: BP 107/68; PULSE 100; RESP 16; TEMP 97.7; O2SAT 96
[2023-10-07 08:55] LABS: BASOPHILS % (AUTO) 0.6 % (0.0-2.0); EOSINOPHILS % (AUTO) 3.5 % (1.0-6.0); HEMOGLOBIN 12.5 g/dL (12.0-16.0); LYMPHOCYTES # (AUTO) 3.1 K/uL (1.0-4.8); LYMPHOCYTES % (AUTO) 30.5 % (22.0-44.0); MEAN CORPUSCULAR HEMOGLOBIN 28.4 pg (26.0-34.0); MEAN CORPUSCULAR HGB CONC 32.8 G/dL (31.0-37.0); MEAN CORPUSCULAR VOLUME 87 fL (80-100); MONOCYTES # (AUTO) 0.8 K/uL (0.1-1.0); MONOCYTES % (AUTO) 7.6 % (2.0-9.0); NEUTROPHILS # (AUTO) 5.8 K/uL (1.8-7.7); NEUTROPHILS % (AUTO) 57.8 % (40.0-70.0); PLATELET COUNT (AUTO) 359 K/uL (150-450); RED BLOOD CELL COUNT(AUTO) 4.39 MIL/uL (4.00-5.20); WHITE BLOOD COUNT (AUTO) 10.1 K/uL (4.5-11.0)
[2023-10-07 20:00] VITALS: BP 132/99; PULSE 100; RESP 16; TEMP 98; O2SAT 97
[2023-10-08 08:15] VITALS: BP 108/70; PULSE 68; RESP 17; TEMP 97.7; O2SAT 98
[2023-10-08 20:37] VITALS: BP 134/91; PULSE 110; RESP 18; TEMP 97.4; O2SAT 99
[2023-10-09 08:20] VITALS: BP 143/86; PULSE 100; RESP 18; TEMP 97.6; O2SAT 97
[2023-10-09 20:12] VITALS: BP 120/85; PULSE 113; RESP 18; TEMP 97.6; O2SAT 97
[2023-10-10 08:40] VITALS: BP 101/65; PULSE 100; RESP 16; TEMP 97.8; O2SAT 97
[2023-10-10 20:00] VITALS: BP 97/60; PULSE 98; RESP 16; TEMP 98.2; O2SAT 95
[2023-10-11 08:21] VITALS: BP 108/62; PULSE 100; RESP 16; TEMP 98; O2SAT 98
[2023-10-11 20:51] VITALS: BP 113/67; PULSE 94; RESP 18; TEMP 96.9; O2SAT 94
[2023-10-12 08:24] VITALS: BP 114/79; PULSE 100; RESP 17; TEMP 97; O2SAT 98
[2023-10-12 20:23] VITALS: BP 128/86; PULSE 118; RESP 16; TEMP 97.5; O2SAT 97
[2023-10-13 08:23] VITALS: BP 112/69; PULSE 86; RESP 18; TEMP 98.2; O2SAT 97
[2023-10-13 21:53] VITALS: BP 104/65; PULSE 99; RESP 16; TEMP 98.2; O2SAT 96
[2023-10-14 08:45] LABS: BASOPHILS % (AUTO) 0.4 % (0.0-2.0); EOSINOPHILS % (AUTO) 4.3 % (1.0-6.0); HEMATOCRIT 37.2 % (36-46); HEMOGLOBIN 12.3 g/dL (12.0-16.0); LYMPHOCYTES # (AUTO) 2.7 K/uL (1.0-4.8); LYMPHOCYTES % (AUTO) 27.1 % (22.0-44.0); MEAN CORPUSCULAR HEMOGLOBIN 28.8 pg (26.0-34.0); MEAN CORPUSCULAR HGB CONC 33.1 G/dL (31.0-37.0); MEAN CORPUSCULAR VOLUME 87 fL (80-100); MONOCYTES # (AUTO) 0.7 K/uL (0.1-1.0); MONOCYTES % (AUTO) 7.1 % (2.0-9.0); NEUTROPHILS % (AUTO) 61.1 % (40.0-70.0); PLATELET COUNT (AUTO) 301 K/uL (150-450); RED BLOOD CELL COUNT(AUTO) 4.28 MIL/uL (4.00-5.20); RED CELL DISTRIBUTION WIDTH 16.3 % (11.5-14.5); WHITE BLOOD COUNT (AUTO) 9.9 K/uL (4.5-11.0)
[2023-10-14 09:45] VITALS: BP 116/76; PULSE 92; RESP 17; TEMP 97.3; O2SAT 96
[2023-10-14 20:04] VITALS: RESP 18
[2023-10-14] MEDS: ACETAMINOPHEN 325 MG TABLET PO PRN (20:04)
[2023-10-14 20:31] VITALS: BP 140/99; PULSE 115; RESP 18; TEMP 96.9; O2SAT 98
[2023-10-14 21:04] VITALS: RESP 17
[2023-10-14] MEDS: GuaiFENesin/D-METHORPHAN [SUGAR-FREE] 200-20MG/10 ML SYRUP UDCUP PO PRN (21:29)
[2023-10-15 03:02] VITALS: BP 134/86; PULSE 112; RESP 18; TEMP 98
[2023-10-15 04:14] VITALS: RESP 16
[2023-10-15 08:17] VITALS: BP 110/74; PULSE 79; RESP 16; TEMP 97.6; O2SAT 98
[2023-10-15 15:06] VITALS: RESP 18
[2023-10-15 18:11] LABS: GLUCOMETER DEV NAME(LOC) POC.BV; POC SARS-COV2 AG, FIA POSITIVE (NEGATIVE)
[2023-10-15 19:39] VITALS: BP 137/66; PULSE 110; RESP 18; TEMP 98.7; O2SAT 97
[2023-10-15 20:52] VITALS: RESP 16
[2023-10-16 08:46] VITALS: BP 116/82; PULSE 100; RESP 16; TEMP 98; O2SAT 96
[2023-10-16 09:51] VITALS: BP 116/69; PULSE 113; RESP 17; TEMP 98.2; O2SAT 95
[2023-10-16 17:42] VITALS: BP 108/66; PULSE 110; RESP 18; TEMP 97.7; O2SAT 96
[2023-10-16 20:00] VITALS: BP 121/80; PULSE 100; RESP 16; TEMP 97.7; O2SAT 96
[2023-10-17 08:34] VITALS: BP 122/84; PULSE 102; RESP 16; TEMP 98; O2SAT 96
[2023-10-17 09:07] LABS: CLOZAPINE & NORCLOZAPINE 523 ng/mL; NORCLOZAPINE 181 ng/mL (Not Estab.)
[2023-10-17] MEDS: GuaiFENesin/D-METHORPHAN/PHENYLEPH 5 ML LIQUID ORAL.SYG PO PRN (10:30)
[2023-10-17 21:07] VITALS: BP 121/78; PULSE 98; RESP 17; TEMP 98; O2SAT 96
[2023-10-18 08:41] VITALS: BP 121/73; PULSE 100; RESP 17; TEMP 98; O2SAT 98
[2023-10-18 20:47] VITALS: BP 128/78; PULSE 97; RESP 18; TEMP 97.7; O2SAT 95
[2023-10-19 12:00] VITALS: BP 119/79; PULSE 93; RESP 17; TEMP 97.7; O2SAT 95
[2023-10-19 21:28] VITALS: BP 120/79; PULSE 94; RESP 18; TEMP 97.9; O2SAT 98
[2023-10-20 08:11] VITALS: BP 116/74; PULSE 82; RESP 16; TEMP 98.6; O2SAT 97
[2023-10-20 11:45] LABS: GLUCOMETER DEV NAME(LOC) POC.BV; POC SARS-COV2 AG, FIA NEGATIVE (NEGATIVE)
[2023-10-20 20:54] VITALS: BP 145/88; PULSE 106; RESP 17; TEMP 98; O2SAT 99
[2023-10-21 08:14] LABS: BASOPHILS % (AUTO) 0.4 % (0.0-2.0); EOSINOPHILS % (AUTO) 4.3 % (1.0-6.0); HEMATOCRIT 38.1 % (36-46); HEMOGLOBIN 12.9 g/dL (12.0-16.0); LYMPHOCYTES # (AUTO) 2.9 K/uL (1.0-4.8); MEAN CORPUSCULAR HEMOGLOBIN 29.3 pg (26.0-34.0); MEAN CORPUSCULAR HGB CONC 33.8 G/dL (31.0-37.0); MEAN CORPUSCULAR VOLUME 87 fL (80-100); MONOCYTES # (AUTO) 0.5 K/uL (0.1-1.0); MONOCYTES % (AUTO) 5.5 % (2.0-9.0); NEUTROPHILS # (AUTO) 5.8 K/uL (1.8-7.7); NEUTROPHILS % (AUTO) 59.8 % (40.0-70.0); PLATELET COUNT (AUTO) 364 K/uL (150-450); RED BLOOD CELL COUNT(AUTO) 4.38 MIL/uL (4.00-5.20); RED CELL DISTRIBUTION WIDTH 15.3 % (11.5-14.5); WHITE BLOOD COUNT (AUTO) 9.8 K/uL (4.5-11.0)
[2023-10-21 08:26] VITALS: BP 106/73; PULSE 94; RESP 16; TEMP 98.6; O2SAT 95
[2023-10-21 20:53] VITALS: BP 134/67; PULSE 93; RESP 18; TEMP 98.2; O2SAT 96
[2023-10-22 09:30] VITALS: BP 109/74; PULSE 74; RESP 16; TEMP 97.8; O2SAT 97
[2023-10-22 21:20] VITALS: BP 128/89; PULSE 96; RESP 18; TEMP 97.5; O2SAT 98
[2023-10-23 10:44] VITALS: BP 102/70; PULSE 85; RESP 18; TEMP 98.4; O2SAT 97
[2023-10-23 20:32] VITALS: BP 133/87; PULSE 100; RESP 18; TEMP 97; O2SAT 100
[2023-10-24 08:19] VITALS: BP 106/63; PULSE 87; RESP 16; TEMP 97.9; O2SAT 97
[2023-10-24] MEDS ORDERED: CLOZ100T61 PO ×4 (16:25→21:32)
[2023-10-24] MEDS ORDERED: NALT50TA33 PO (16:25)
[2023-10-24 20:39] VITALS: BP 112/80; PULSE 76; RESP 18; TEMP 98.6; O2SAT 98
[2023-10-24] MEDS ORDERED: NALT50TA6 PO (21:32)
[2023-10-25 08:07] VITALS: BP 116/72; PULSE 84; RESP 16; TEMP 98.2; O2SAT 97
[2023-10-25 20:16] VITALS: BP 116/73; PULSE 80; RESP 16; TEMP 97; O2SAT 98
[2023-10-26 08:32] VITALS: BP 101/63; PULSE 76; RESP 17; TEMP 98; O2SAT 97
[2023-10-26 20:47] VITALS: BP 100/60; PULSE 92; RESP 19; TEMP 97.7; O2SAT 99
[2023-10-27 06:21] LABS: GLUCOMETER DEV NAME(LOC) POC.BV; POC SARS-COV2 AG, FIA NEGATIVE (NEGATIVE)
[2023-10-27 08:20] VITALS: BP 104/60; PULSE 96; RESP 16; TEMP 98.7; O2SAT 97
== END 2023-10-27 12:46 | DRG 750 ==
LOC: B3A 08-23 18:07
PROVIDERS: ADMIT Psychiatry & Neurology Psychiatry; ATTEND Psychiatry & Neurology Psychiatry
PROC: GZHZZZZ Group Psychotherapy (ICD-10-PCS; principal; 2023-08-23)
PROC: GZ51ZZZ Individual Psychotherapy, Behavioral (ICD-10-PCS; 2023-08-23)
PROC: GZ58ZZZ Individual Psychotherapy, Cognitive-Behavioral (ICD-10-PCS; 2023-08-23)
PROC: GZ56ZZZ Individual Psychotherapy, Supportive (ICD-10-PCS; 2023-08-24)
DX: F25.0 Schizoaffective disorder, bipolar type (principal); U07.1 COVID-19; F17.200 Nicotine dependence, unspecified, uncomplicated; G47.00 Insomnia, unspecified; F15.90 Other stimulant use, unspecified, uncomplicated; F31.89 Other bipolar disorder; F41.9 Anxiety disorder, unspecified; J44.9 Chronic obstructive pulmonary disease, unspecified; Z59.00 Homelessness unspecified; Z79.899 Other long term (current) drug therapy
CPT/HCPCS: 80159; 80178; 81001; 85025; 87081